=== PATIENT | male | born 1935 | race Caucasian/White ===

== ENCOUNTER 2017-09-21 15:21 | Inpatient (IN) | payer MEDICARE, MEDICAID ==
[~2017-09-21] VITALS: Ht 185.4 cm; Wt 92.8 kg
--- NOTE | 2017-09-21 15:53 | NUR ---
NEW ADMIT TRANSFERED FROM ER BY W/C VIA EMS. OREINTED TO ROOM. CALL LIGHT IN REACH. WILL CONT. PLAN OF CARE.
[2017-09-21 15:59] VITALS: BP 161/92; BMI 25.1
[2017-09-21 16:29] LABS: BASOPHILS 0.3 % (0-2); EOSINOPHILS 3.6 % (0-7); HEMATOCRIT 42.8 % (42.0-54.0); HEMOGLOBIN 14.2 g/dL (13.5-17.5); IMMATURE GRANULOCYTES 0.3 % (0-5); MCH 30.3 pg (26.0-34.0); MCHC 33.2 g/dL (31.0-37.0); MCV 91.3 fL (80.0-100.0); MEAN PLATELET VOLUME 10.6 fL (7.4-10.4); MONOCYTES 8.4 % (2-11); NEUTROPHILS 70.4 % (40-80); PLATELET COUNT 247 10x3/uL (130-400); RBC 4.69 10x6/uL (4.20-6.10); RDW 12.8 % (11.5-14.5); WBC 11.9 10x3/uL (4.8-10.8)
[2017-09-21 16:49] LABS: ALBUMIN 3.8 g/dL (3.4-5.0); ALKALINE PHOSPHATASE 115 U/L (46-116); ALT (SGPT) 19 U/L (10-68); BILIRUBIN - TOTAL 0.45 mg/dL (0.2-1.3); CALC OSMOLALITY 281 mosm/kg (275-300); CALCIUM 8.5 mg/dL (8.5-10.1); CHLORIDE - SERUM 100 mmol/L (98-107); CREATININE - SERUM 1.6 mg/dL (0.6-1.3); GLUCOSE 301 mg/dL (74-106); POTASSIUM - SERUM 4.5 mmol/L (3.5-5.1); PROTEIN - SERUM 7.2 g/dL (6.4-8.2); SODIUM 134 mmol/L (136-145); UREA NITROGEN 21 mg/dL (7-18); eGFR NON AFRICAN AMERICAN 44 mL/min (90-120)
[2017-09-21 17:01] LABS: CKMB 3.8 U/L (0.0-3.6); CREATINE KINASE 143 UL (21-232)
[2017-09-21 17:06] LABS: TROPONIN-I < 0.017 ng/mL (0.000-0.060)
--- NOTE | 2017-09-21 19:57 | NUR ---
PT SITTING ON SIDE OF BED, AWAKE, ALERT, ORIENTED AT THIS TIME TO PLACE AND SITUATION. PTS SISTER AND SISTER IN LAW HAVE NOW LEFT, HOWEVER, THEY DID LEAVE THEIR NUMBERS TO BE REACHED ANYTIME. THE SISTERS STATE THAT PT HAS DEMENTIA AND LIVES IN ASSISTED LIVING, BUT NO REPORTS OF SUNDOWNERS. PT DENIES ANY NEEDS AT THIS TIME. WILL CONTINUE TO MONITOR CLOSELY. JAGJIT ROY - SISTER IN LAW [phone] MARY JO PINTO - SISTER [phone] BOTH STATE THEY HAVE POA, AND ARE TO BE NOTIFIED WITH ANY CHANGES IN PTS STATUS.
[2017-09-21 21:12] VITALS: BP 144/89
[2017-09-22 01:05] VITALS: BP 156/92
[2017-09-22 01:09] LABS: CKMB 2.9 U/L (0.0-3.6); CREATINE KINASE 94 UL (21-232); TROPONIN-I < 0.017 ng/mL (0.000-0.060)
[2017-09-22 05:22] VITALS: BP 140/84
[2017-09-22 06:23] LABS: HEMATOCRIT 44.4 % (42.0-54.0); LYMPHOCYTES 20.4 % (15-50); MCH 29.9 pg (26.0-34.0); MCHC 33.8 g/dL (31.0-37.0); MEAN PLATELET VOLUME 10.4 fL (7.4-10.4); NEUTROPHILS 66.6 % (40-80); PLATELET COUNT 266 10x3/uL (130-400); RBC 5.02 10x6/uL (4.20-6.10); RDW 13.1 % (11.5-14.5); WBC 9.6 10x3/uL (4.8-10.8)
--- NOTE | 2017-09-22 06:25 | NUR ---
PT RESTING COMFORTABLY, NO NEEDS. CONTINUE TO MONITOR CLOSELY.
[2017-09-22 06:26] LABS: MCV 88.4 fL (80.0-100.0)
[2017-09-22 06:54] LABS: CALC OSMOLALITY 288 mosm/kg (275-300); CALCIUM 9.4 mg/dL (8.5-10.1); CARBON DIOXIDE 28.4 mmol/L (21.0-32.0); CHLORIDE - SERUM 104 mmol/L (98-107); CKMB 2.6 U/L (0.0-3.6); CREATINE KINASE 84 UL (21-232); CREATININE - SERUM 1.6 mg/dL (0.6-1.3); POTASSIUM - SERUM 4.2 mmol/L (3.5-5.1); SODIUM 140 mmol/L (136-145); TROPONIN-I < 0.017 ng/mL (0.000-0.060); UREA NITROGEN 18 mg/dL (7-18); eGFR NON AFRICAN AMERICAN 44 mL/min (90-120)
[2017-09-22 06:55] LABS: GLUCOSE 239 mg/dL (74-106)
[2017-09-22 08:00] VITALS: BP 154/95
[2017-09-22 11:30] VITALS: Ht 185.4 cm; Wt 92.8 kg
[2017-09-22 12:00] VITALS: BP 151/83
[2017-09-22] MEDS ORDERED: NORVASC10 MG PO (12:04)
[2017-09-22] MEDS ORDERED: TOPROL XL100 MG PO (12:04)
[2017-09-22] MEDS ORDERED: GLUCOTROL 5 MG T5 MG PO ×2 (12:06→12:07)
[2017-09-22] MEDS ORDERED: LISINOPRIL10 MG PO (12:07)
[2017-09-22] MEDS ORDERED: PRAVASTATIN SOD10 MG PO (12:08)
[2017-09-22] MEDS ORDERED: BENZONATATE200 MG PO (12:18)
[2017-09-22] MEDS ORDERED: ACETAMINOPHEN500 M1 PO (12:20)
[2017-09-22] MEDS ORDERED: ASPIRIN81 MG PO (13:08)
--- NOTE | 2017-09-22 13:20 | HP ---
PATIENT: DAVE ROY MEDICAL RECORD: [id number] ACCOUNT: [id number] LOCATION:[address] : 36 ADMISSION DATE: 09/21/17 HISTORY AND PHYSICAL EXAMINATION HISTORY: The patient is a pleasant 82-year-old white male, patient of mine, who resides in assisted living, developed chest pain. The assisted living personnel tried to call local ambulance but no one is in town, so they sent him up here. Pain started 30-40 minutes prior to his presentation here. His EKG shows sinus mechanism at this time without any acute change. Chest x-ray reveals no infiltrates. He is given nitroglycerin times 2 with almost complete relief after the second. He was also given an aspirin here in the office. He has no known history of heart problems. He does drink alcohol on a daily basis. He is going to be a direct admit to the hospital. PAST MEDICAL HISTORY: Significant for known hypertension, COPD, prostate cancer, type 2 diabetes, and alcohol abuse. PAST SURGICAL HISTORY: Previous surgeries include right ankle surgery in 1978 and implants for prostate cancer in 2001. ALLERGIES: None known. HOME MEDICATIONS: Amlodipine 10 mg one p.o. daily, metoprolol 100 mg a day, pravastatin 10 mg a day, glipizide 5 mg two in the morning and one at supper, lisinopril 10 mg b.i.d., and Tylenol p.r.n. FAMILY HISTORY: Significant for type 2 diabetes. SOCIAL HISTORY: He resides at [facility]. He has been a smoker in the past, but quit almost 20 years ago. He drinks about 12 packs per day. REVIEW OF SYSTEMS: He complains of chest pain as above and some shortness of breath. No nausea. Denies rash. He denies any abdominal pain or change in bowels. PHYSICAL EXAMINATION: VITAL SIGNS: Height 6 feet 1-1/2 inches and weight 215. Temp 98.6, initial BP is 150/68, pulse is 81, respirations 12, and sats 97%. GENERAL: He appears moderately to mildly ill. He is in no obvious distress at this time. HEENT: Sclerae are nonicteric. 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 Mucous membranes appear a little moist. HEART: Regular at this time. LUNGS: Few coarse sounds and slight wheeze. ABDOMEN: Soft. EXTREMITIES: Lower extremities reveal no edema. NEUROLOGIC: Without any gross focal deficits. IMPRESSION: 1. Chest pain, relieved with nitroglycerin. 2. Hypertension. 3. Type 2 diabetes. 4. Alcohol abuse. 5. Hyperlipidemia. HISTORY AND PHYSICAL [id number] DAVE ROY PLAN: Direct admit. Cycle enzymes. He is given an aspirin here in the office plus nitro times 2 with almost complete relief of pain. Consult cardiology. See orders for plan. TRANSINT:[id number] Voice Confirmation ID: [id number] DOCUMENT ID: [id number] ZENA STODDARD DO at 1320 CC: [id number] DICTATION DATE: 09/21/17 1421 COMMUNICATIONS SUPERVISOR: 09/21/17 1741 ADM IN [facility] [address] [place] [address]
--- NOTE | 2017-09-22 17:22 | NUR ---
IV AND TELEMETRY DCD. DC PLANS GIVEN. UNDERSTANDING VOICED. ESCORTED TO CAR BY W/C.
--- NOTE | 2017-09-22 17:27 | NUR ---
Patient Name: DAVE ROY Admission Status: ER Accout number: [id number] Admission Date: 09-21-2017 : 1935 Admission Diagnosis:CHEST PAIN, UNSPECIFIED Attending: MORAIMA, Current LOS: 1 Anticipated DC Date: 09-22-2017 Planned Disposition: Assisted Living Primary Insurance: MEDICARE A & B PLANNED EXTERNAL PROVIDER: [facility] [place] Discharge Planning Comments: * Is the patient Alert and Oriented? Yes 0 * How many steps to enter\exit or inside your home? NONE 0 * PCP DR. STODDARD 0 * [facility] [place] 0 * Preadmission Environment Home Alone 0 * ADLs Partial Dependent 0 * Partial ADLs (Assistance needed) Medication Management 0 * Equipment Cane 0 * Other Equipment NO MEDICAL EQUIPMENT PROVIDER PREFERENCE 0 * List name and contact numbers for known caregivers / representatives who currently or will assist patient after discharge: JAGJIT ROY, IN LAW, MARY JO PINTO, SISTER, 0 * Community resources currently utilized None 0 * Please name any agencies selected above. NONE 0 * Additional services required to return to the preadmission environment? No 0 * Can the patient safely return to the preadmission environment? Yes 0 * Has this patient been hospitalized within the prior 30 days at any hospital? No 0 CM MET WITH PT, SISTER AND SISTER IN LAW IN ROOM TO DISCUSS DISCHARGE PLANNING AND NEEDS. PT REPORTS LIVING AT [facility] [place]. PT REQUIRES ASSISTANCE WITH MEDICATION MANAGEMENT ONLY. PT HAS A CANE WITH NO MEDICAL EQUIPMENT PROVIDER PREFERENCE. PT HAS NO OTHER OUTSIDE SERVICES ASSISTING IN THE HOME. CM DISCUSSED AVAILABILITY OF HOME HEALTH, REHAB SERVICES AND MEDICAL EQUIPMENT. PT DENIES DISCHARGE NEEDS, REPORTS HIS SISTER IS HERE TO PICK HIM UP FOR DISCHARGE HOME. PT'S BEDSIDE NURSE REPORTS SHE CALLED REPORT TO [facility] AND WAS TOLD NOTHING MORE WAS REQUIRED. LIVE IN HOUSEKEEPER WAS ALREADY AWARE. Turbine Technician: Nic Fischer
--- NOTE | 2017-09-25 13:58 | CN ---
PATIENT NAME:DAWIT ROY MEDICAL RECORD: [id number] : 37 LOCATION:. D.2119 ADMIT DATE: 09/21/17 ACCOUNT: [id number] CONSULTING PHYSICIAN: NADIR GARBER MD REFERRING PHYSICIAN: LENA VALERA MD DATE OF CONSULTATION: 09/22/2017 HISTORY OF PRESENT ILLNESS: Dawit Roy is an 82-year-old gentleman, resident of assisted living. No known history of heart disease. He presented with a direct admit for chest pain. Currently, cardiac enzymes are negative. He is not a good historian, apparently doing his usual activities. He does not have chest pain on a regular basis. We are asked to see him concerning his cardiovascular status. PAST MEDICAL HISTORY: Includes; 1. History of hypertension. 2. Hyperlipidemia. 3. Questionable history of dementia. ALLERGIES: None known. MEDICATIONS: Included amlodipine 10 mg p.o. q. day, lisinopril 10 mg p.o. q. day, metoprolol 100 mg p.o. q. day, pravastatin 10 mg p.o. q. day, Ativan 1, and insulin per scale. SOCIAL HISTORY: He currently resides in assisted living, apparent history of alcohol abuse in the past. REVIEW OF SYSTEMS: The patient reports easy bruising but reports no swollen glands. The patient reports no fever, no night sweats, no significant weight gain, no significant weight loss. No significant exercise tolerance. The patient reports no dry eyes, no irritation, no vision change. Patient reports no difficulty hearing and no ear pain. Patient reports no frequent nose bleeds or nose and sinus problems. Patient reports on arm pain on exertion. No shortness of breath while lying down. No history of heart murmur. Patient reports no cough, no wheezing or coughing up blood. Patient reports no abdominal pain, no vomiting. Normal appetite. No diarrhea and not vomiting blood. No nausea and no constipation. Patient reports no incontinence. No difficulty urinating. No hematuria. No increased frequency. Patient reports no muscle aches. No weakness, no arthralgias, no back pain. No swelling of the extremities. Patient reports no abnormal mole, no jaundice, no rashes. Reports no loss of consciousness. No weakness and no numbness. No seizures, dizziness, or headaches. The patient reports no depression, no sleep disturbance, feeling safe in a relationship and no alcohol abuse. Patient reports on fatigue. Reports no runny nose or sinus pressure. No itching, no hives, and no frequent sneezing. PHYSICAL EXAMINATION: GENERAL: Pleasant gentleman, in no acute distress. VITAL SIGNS: Blood pressure 140/84, pulse 77 and regular. HEENT: Normocephalic, atraumatic. NECK: No JVD or bruit. HEART: Regular, II/ systolic ejection murmur. LUNGS: Good air excursion. ABDOMEN: Soft, nontender. CONSULT REPORT [id number] DAWIT ROY EXTREMITIES: Pulses 2+ with no edema. DIAGNOSTIC DATA: ECG without acute change. Cardiac enzymes are negative. IMPRESSION: Discussed with the patient and family, they prefer to defer any invasive workup at this time. We will check echocardiographic study, if enzymes remain negative, no contraindication at discharge from my standpoint. TRANSINT:[id number] Voice Confirmation ID: [id number] DOCUMENT ID: [id number] NADIR GARBER MD at 1358 CC: [id number] DICTATION DATE: 09/22/17 0844 MATERIALS ASSISTANT: 09/22/17 1207 DIS IN 09/22/17 [facility] [address] [place] [address]
[2017-11-14] MEDS ORDERED: METOPROLOL TART50 MG PO (06:24)
== END 2017-09-22 17:23 | disposition home or self-care (01) | DRG 313 ==
LOC: D.ER 15:21 → D.M2 15:30
PROVIDERS: ADMIT Family Medicine
DX: R07.9 Chest pain, unspecified (principal); I10 Essential (primary) hypertension; J44.9 Chronic obstructive pulmonary disease, unspecified; E78.5 Hyperlipidemia, unspecified; F10.10 Alcohol abuse, uncomplicated; Z85.46 Personal history of malignant neoplasm of prostate; E11.65 Type 2 diabetes mellitus with hyperglycemia

== ENCOUNTER → 2017-11-14 06:11 | Outpatient (CLI) | payer MEDICARE ==
[~2017-11-14] VITALS: Ht 188 cm; Wt 84.1 kg
--- NOTE | ~2017-11-14 | HEMODYNAMI ---
PATIENT:DAVE ROY MEDICAL RECORD: [id number] : 37 LOCATION:D.CAT ADMISSION DATE: 11/14/17 Generatedon:11/14/20178:16 Patient name: DAVE ROY Patient #: [id number] SSN: : 1935 Date of study: 11/14/2017 Page: Of Hemodynamic Procedure Report Patient Data Patient Demographics Procedure consent was obtained First Name: DAVE Gender: Male Last Name: KIRILL : 1935 Patient #: [id number] Age: 82 year(s) Race: Unknown Additional ID: [id number] Contact details [address]: [address] [place] [address] ROAD State: [place] City: [place] Zip code: [address] Admission Admission Data Admission Date: 11/14/2017 Admission Time: 6:11 Procedure Procedure Types Cath Procedure Diagnostic Procedure LHC LH w/Coronaries Miscellaneous Procedures Moderate Sedation up to 15 minutes Procedure Description Procedure Date Procedure Date: 11/14/2017 Procedure Start Time: 7:59 Procedure End Time: 8:14 Procedure Staff Name Function Chaz Lynch MD Performing Physician Courtney Pan RN Nurse Emma Jones RT Monitor Brian Meyer RT Scrub Procedure Data Cath Procedure Fluoroscopy Diagnostic fluoroscopy Total fluoroscopy Time: 2.2 time: 2.2 min min Diagnostic fluoroscopy Total fluoroscopy dose: 667 dose: 667 mGy mGy Contrast Material Contrast Material Type Amount (ml) Isovue 300 49 Entry Location Entry Primary Successful Side Size Upsize Upsize Entry Closure Succes sful Closure Location (Fr) 1 (Fr) 2 (Fr) Remarks Device Remarks Femoral Right 5 Fr Exoseal artery Estimated blood loss: 10 ml Diagnostic catheters Device Type Used For End Catheter Placement MULTIPACK JL 4.0 5Fr Procedure catheter MULTIPACK 3DRC 5Fr Procedure catheter MULTIPACK Pigtail 5 Fr Procedure catheter Procedure Complications No complications Procedure Medications Medication Administration Route Dosage Oxygen NC 2 l/min Lidocaine 2% added to field 20 Heparin Flush Bag added to field 2 bags (1000units/500ml NS) 0.9% NaCl I.V. 100 ml/hr Versed I.V. 1 mg Fentanyl I.V. 25 mcg Hemodynamics Rest Heart Rate: 72 (bpm) Pressure Samples Time Site Value (mmHg) Purpose Heart Use Rate(bpm) 8:03 AO 135/71(99) Snapshot 72 8:09 LV 122/0,13 EDP 69 8:09 AO 136/51(85) Pullback 70 8:09 LV 110/5,11 Pullback 70 Gradients Valve Time Site 1 Site 2 Mean SEP/DFP Peak To Heart Use (mmHg) (sec/min) Peak Rate (mmHg) (bpm) Aortic 8:09 LV AO 0 7 0 70 110/5,11 136/51(85) Calculations Valve P-P Mean Valve Index Valve Source Name Gradient Area Flow (cm2) Aortic 0 0 0 0 Snapshots Pre Cath Intra NCS Post Cath Vital Signs Time Heart Resp SPO2 etCO2 NIBP (mmHg) Rhythm Pain Sedation Rate (ipm) (%) (mmHg) Status Level (bpm) 7:50:19 90 13 97 40.6 163/83(118) NSR 0 (11) 10(A) , No pain 7:55:03 69 13 100 39.8 154/86(121) NSR 0 (11) 10(A) , No pain 7:59:50 73 13 99 42.1 144/83(115) NSR 0 (11) 10(A) , No pain 8:04:31 71 15 99 43.6 139/80(111) NSR 0 (11) 9(A) , No pain 8:09:16 69 15 99 42.9 119/65(93) NSR 0 (11) 10(A) , No pain 8:13:54 71 11 98 45.2 127/74(106) NSR 0 (11) 10(A) , No pain Medications Time Medication Route Dose Verified Delivered Reason Notes Effec tiveness by by 7:41:22 Oxygen NC 2 Chaz Buffie used for l/min Cris Pan RN procedure 7:41:29 Lidocaine 2% added 20ml Chaz Chaz for local to vial Cris Lynch MD anesthetic field CANCHOLA 7:41:35 Heparin Flush added 2 Chaz Chaz used for Bag to bags Cris Lynch MD procedure (1000units/500ml field CANCHOLA NS) 7:41:45 0.9% NaCl I.V. 100 Chaz Courtney Per ml/hr Cris Pan RN physician MD 7:59:49 Versed I.V. 1 mg Chaz Valdez for Cris Pan RN sedation 7:59:56 Fentanyl I.V. 25 Chaz Herreraie [place] [facility] [place] Pan RN sedation Procedure Log Time Note 7:30:32 Brian Meyer RT(R) sent for patient. Start room use. 7:33:32 Time tracking: Regular hours 7:33:36 Plan of Care:Hemodynamics will remain stable., Cardiac rhythm will remain stable., Comfort level will be maintained., Respiratory function will remain adequate., Patient/ family verbilizes understanding of procedure., Procedure tolerated without complication., Recovers from procedure without complications.. 7:41:22 Oxygen 2 l/min NC was administered by Courtney Pan RN; used for procedure; 7:41:29 Lidocaine 2% 20ml vial added to field was administered by Chaz Lynch MD; for local anesthetic; 7:41:35 Heparin Flush Bag (1000units/500ml NS) 2 bags added to field was administered by Chaz Lynch MD; used for procedure; 7:41:45 0.9% NaCl 100 ml/hr I.V. was administered by Courtney Pan RN; Per physician; 7:42:49 Patient received from Pre/Post Procedure Room to CCL 1 Alert and oriented. Tansferred to table in Supine position. 7:42:50 Warm blankets applied, and sudhir hugger turned on for patient comfort. 7:42:51 Correct patient and procedure confirmed by team. 7:42:52 Signed procedure consent form obtained from patient. 7:42:53 ECG and BP/O2 sat monitors applied to patient. 7:49:21 Vital chart was started 7:49:34 Rhythm: sinus rhythm 7:49:35 Full Disclosure recording started 7:49:41 H&P Date Dictated: 11/08/2017 Within 30 days and on chart., H&P Addendum completed by physician on day of procedure. (MUST COMPLETE FOR ALL OUTPATIENTS). 7:49:41 Pre-procedure instructions explained to patient. 7:49:42 Pre-op teaching completed and patient verbalized understanding. 7:49:44 Family in patients room. 7:49:46 Patient NPO since Midnight. 7:49:47 Is the patient allergic to Iodine/contrast media? No. 7:49:48 Is patient on blood thinner?Yes 7:49:51 ACC The patient was administered the following blood thiners within the last 24 hours: ACCPlavix 7:49:52 Patient diabetic? Yes. 7:49:54 If diabetic: On Metformin? No 7:49:56 Previous problem with sedation/anesthesia? No ? 7:49:58 Snore? Yes 7:49:59 Sleep apnea? No 7:50:00 Deviated septum? No 7:50:01 Opens mouth fully? Yes 7:50:02 Sticks out tongue? Yes 7:50:04 Airway obstruction? No ? 7:50:07 Dentures? Yes OUT 7:50:12 Pre procedure: right dorsailis pedis pulse 1+ Palpable, but thready & weak; easily obliterated 7:50:13 Modified Levi's test Ulnar > 7 seconds. 7:50:23 FAILED ALLENS 7:51:34 Patient pain scale 0/10 ?. 7:54:37 IV patent on arrival in left hand with 0.9% NaCl at [facility]. 7:54:40 Lab results completed and on chart. 7:54:52 Right groin area was prepped with chlora-prep and draped in sterile fashion 7:54:53 Alarms reviewed by ROrlando N. 7:54:54 Sharps counted by scrub and verified by R.N. 7:54:56 --------ALL STOP TIME OUT------ 7:54:56 Final Timeout: patient, procedure, and site verified with staff and physician. All members of the team are in agreement. 7:54:58 Right groin site verified by team. 7:55:01 Physical assessment completed. ASA score P 2 - A patient with mild systemic disease as per Chaz Lynch MD. 7:55:05 Sedation plan: IV Moderate Sedation Medication:Versed, Fentanyl 7:56:23 Use device set Femoral Dx 7:56:26 Tegaderm 4 x 4 (1626W) opened to sterile field. 7:56:27 ACIST Hand Control (70451) opened to sterile field. 7:56:27 ACIST Manifold (78433) opened to sterile field. 7:56:29 ACIST Syringe (72712) opened to sterile field. 7:56:29 Bag Decanter (2002S) opened to sterile field. 7:56:29 Medline Cath Pack ([id number]) opened to sterile field. 7:56:30 SHEATH 5FR [place] (XUG573) opened to sterile field. 7:56:31 DIAGNOSTIC WIRE .035 260cm J wire (641396) opened to sterile field. 7:56:33 DIAGNOSTIC Multipack 5Fr catheter set (PB1290) opened to sterile field. 7:56:34 MICROPUNCTURE 4FR Cook (S91119) opened to sterile field. 7:59:49 Procedure started. 7:59:49 Versed 1 mg I.V. was administered by Courtney Pan RN; for sedation; 7:59:54 Local anesthetic to right femoral artery with Lidocaine 2% by Chaz Lynch MD.INITIAL ACCESS ONLY 7:59:56 Fentanyl 25 mcg I.V. was administered by Courtney Pan RN; for sedation; 8:01:06 Access obtained with 4Fr micropunture. 8:01:10 Baseline sample Acquired. 8:01:22 Zero performed for pressure channel P1 8:01:39 A 5 Fr sheath was inserted into the Right Femoral artery 8:01:56 A MULTIPACK JL 4.0 5Fr catheter was advanced over the wire and used for Procedure. 8:03:26 LCA angiography performed. 8:05:31 Catheter exchanged over wire. 8:05:46 A MULTIPACK 3DRC 5Fr catheter was advanced over the wire and used for Procedure. 8:07:07 RCA angiography performed. 8:07:30 Catheter exchanged over wire. 8:09:05 A MULTIPACK Pigtail 5 Fr catheter was advanced over the wire and used for Procedure. 8:09:53 LV angiography performed. 8:09:56 LV gram done using MARTINEZ 8:10:02 EF : 55 % 8:10:08 LV hemodynamics recorded. 8:10:12 Injector settings: Ml/sec: 12, Volume: 8, 8:10:17 Catheter removed. 8:10:20 EXOSEAL 5Fr (EX500) opened to sterile field. 8:12:19 Sheath removed intact; hemostasis achieved with Exoseal to the Right Femoral artery. 8:12:22 Procedure ended.(Physican Out) 8:12:44 Fluoroscopy time 02.20 minutes. 8:12:49 Fluoroscopy dose: 667 mGy 8:12:49 Flurop Dose total: 667 8:12:58 Contrast amount:Isovue 300 49ml. 8:12:59 Sharps counted by scrub and verified by R.N. 8:13:01 Insertion/operative site no bleeding no hematoma. 8:13:04 Post-op/insertion site Right Femoral artery dressed using a 4 x 4 and Tegaderm. 8:13:05 Post Procedure Pulses reassessed and unchanged 8:13:09 Post-procedure physical assessment completed. ASA score P 2 - A patient with mild systemic disease as per Chaz Lynch MD. 8:13:12 Post procedure rhythm: unchanged. 8:13:15 Estimated blood loss: 10 ml 8:13:16 Post procedure instruction explained to patient.Patient verbalizes understanding. 8:13:17 Patient needs reinforcement of post procedure teaching. 8:13:24 Procedure and supply charges have been captured, reviewed, submitted and are correct. 8:13:26 Procedure Complication : No complications 8:14:37 Vital chart was stopped 8:14:38 See physician's report for complete and final results. 8:14:39 Report given to Pre/Post Procedure Room. 8:14:42 Patient transfered to Pre/Post Procedure Room with Stretcher. 8:14:44 Procedure ended. 8:14:44 Full Disclosure recording stopped 8:14:47 End room use (Document Last) Device Usage Item Name Manufacture Quantity Catalog Hospital Part Current Minimal Lot# / Number Charge Number Stock Stock Serial# Code Tegaderm 4 x 3M 1 1626W [id number] [id number] [id number] 5 4 (1626W) ACIST Hand Acist 1 70488 525808 167836 138854 5 Control Medical (28633) Systems Inc ACIST Acist 1 84411 303985 188999 059242 5 Manifold Medical (07748) Systems Inc ACIST Syringe Acist 1 57983 706701 418220 331139 20 (17519) Medical Systems Inc Bag Decanter Microtek 1 2001S 027569 51585 320181 5 (2001S) Medical Inc. Medline Cath Cardinal 1 [id number] 416077 55065 683916 5 Pack [facility] ([id number]) SHEATH 5FR Terumo 1 YPH075 156552 626038 781040 40 [place] (JET213) DIAGNOSTIC [facility] [place] 1 899458 947233 306280 801875 30 WIRE .035 260cm J wire (733318) DIAGNOSTIC Cardinal 1 WQ5938 562750 03239 469856 30 Multipack 5Fr Health catheter set (GQ1056) MICROPUNCTURE Cook Medical 1 W79812 048046 676132 121745 5 4FR Cook ([id number]) MULTIPACK JL Cardinal 1 230921 5 4.0 5Fr Health catheter MULTIPACK Cardinal 1 125871 5 3DRC 5Fr Health catheter MULTIPACK Cardinal 1 122261 5 Pigtail 5 Fr Health catheter EXOSEAL 5Fr Cardinal 1 EX500 302452 361075 846030 10 (EX500) Health Signature Audit [place] Stage Time Signature Unsigned Intra-Procedure 11/14/2017 Brian Meyer 8:16:29 AM RT(R) Signatures Monitor : Emma Jones Signature : RT Date : Time : [id number] [place] [address]
[~2017-11-14 06:11] MED LIST: ACETAMINOPHEN500 M1 PO; ASPIRIN81 MG PO; BENZONATATE200 MG PO; GLUCOTROL 5 MG T5 MG PO; LISINOPRIL10 MG PO; METOPROLOL TART50 MG PO; NORVASC10 MG PO; PRAVASTATIN SOD10 MG PO; TOPROL XL100 MG PO
[2017-11-14 06:34] VITALS: BP 172/92; Ht 188 cm; Wt 84.1 kg
[2017-11-14 07:01] LABS: BASOPHILS 0.3 % (0-2); EOSINOPHILS 4.4 % (0-7); HEMATOCRIT 43.5 % (42.0-54.0); HEMOGLOBIN 14.3 g/dL (13.5-17.5); IMMATURE GRANULOCYTES 0.2 % (0-5); LYMPHOCYTES 16.9 % (15-50); MCH 29.6 pg (26.0-34.0); MCHC 32.9 g/dL (31.0-37.0); MCV 90.1 fL (80.0-100.0); MEAN PLATELET VOLUME 11.1 fL (7.4-10.4); MONOCYTES 7.8 % (2-11); NEUTROPHILS 70.4 % (40-80); PLATELET COUNT 284 10x3/uL (130-400); RBC 4.83 10x6/uL (4.20-6.10); WBC 9.4 10x3/uL (4.8-10.8)
[2017-11-14 07:09] LABS: ANION GAP 13.2 mmol/L (8-16); CALCIUM 9.1 mg/dL (8.5-10.1); CREATININE - SERUM 1.7 mg/dL (0.6-1.3); POTASSIUM - SERUM 4.2 mmol/L (3.5-5.1)
== END | disposition home or self-care (01) ==
LOC: D.CATH 06:11
PROVIDERS: Internal Medicine Cardiovascular Disease
DX: R07.9 Chest pain, unspecified (principal); R94.39 Abnormal result of other cardiovascular function study; R06.00 Dyspnea, unspecified; Z01.812 Encounter for preprocedural laboratory examination; E11.9 Type 2 diabetes mellitus without complications; E78.5 Hyperlipidemia, unspecified

== ENCOUNTER → 2018-01-24 18:49 | Outpatient (CLI) | payer MEDICARE ==
[2017-11-14 06:34] VITALS: BMI 23.8
[2018-01-24 19:34] LABS: CHOL - HDL RATIO 4.2 ratio (2.3-4.9); LDL-HDL RATIO 2.6 ratio (1.5-3.5)
== END | disposition home or self-care (01) ==
LOC: D.LABREF 18:49
PROVIDERS: Internal Medicine Cardiovascular Disease
DX: E78.5 Hyperlipidemia, unspecified (principal)

== ENCOUNTER → 2018-03-20 17:30 | Outpatient (CLI) | payer MEDICARE ==
[2017-11-14 06:34] VITALS: BMI 23.8
[2018-03-20 17:55] LABS: CHOL - HDL RATIO 2.7 ratio (2.3-4.9); LDL-HDL RATIO 1.1 ratio (1.5-3.5)
== END | disposition home or self-care (01) ==
LOC: D.LABREF 17:30
PROVIDERS: Internal Medicine Cardiovascular Disease
DX: E78.5 Hyperlipidemia, unspecified (principal)

== ENCOUNTER 2019-02-28 17:37 | Emergency (ER) | payer MEDICARE ==
[~2019-02-28] VITALS: Ht 188 cm; Wt 93.6 kg
[2019-02-28 17:45] VITALS: Ht 188 cm; Wt 93.6 kg
[2019-02-28 18:32] LABS: BASOPHILS 0.4 % (0-2); EOSINOPHILS 6.7 % (0-7); HEMATOCRIT 41.1 % (42.0-54.0); HEMOGLOBIN 13.8 g/dL (13.5-17.5); IMMATURE GRANULOCYTES 0.3 % (0-5); LYMPHOCYTES 30.5 % (15-50); MCH 29.3 pg (26.0-34.0); MCHC 33.6 g/dL (31.0-37.0); MCV 87.3 fL (80.0-100.0); MONOCYTES 8.3 % (2-11); NEUTROPHILS 53.8 % (40-80); PLATELET COUNT 292 10x3/uL (130-400); RBC 4.71 10x6/uL (4.20-6.10); RDW 13.6 % (11.5-14.5)
[2019-02-28 18:59] LABS: ALBUMIN 3.3 g/dL (3.4-5.0); ALKALINE PHOSPHATASE 109 U/L (46-116); ALT (SGPT) 17 U/L (10-68); BILIRUBIN - TOTAL 0.61 mg/dL (0.2-1.3); CALC OSMOLALITY 271 mosm/kg (275-300); CALCIUM 8.3 mg/dL (8.5-10.1); CARBON DIOXIDE 24.8 mmol/L (21.0-32.0); CHLORIDE - SERUM 98 mmol/L (98-107); GLUCOSE 160 mg/dL (74-106); PROTEIN - SERUM 6.8 g/dL (6.4-8.2); SODIUM 131 mmol/L (136-145); UREA NITROGEN 28 mg/dL (7-18); eGFR NON AFRICAN AMERICAN 34 mL/min (90-120)
[2019-02-28 19:01] LABS: AMYLASE - SERUM 56 U/L (25-115); LIPASE 396 U/L (73-393)
[2019-02-28 19:06] LABS: CKMB 2.6 U/L (0.0-3.6); CREATINE KINASE 50 UL (21-232); THYROID STIMULATING HORMONE 1.39 uIU/mL (0.36-3.74); TROPONIN-I < 0.017 ng/mL (0.000-0.060)
[2019-02-28 20:30] LABS: INR 0.96 (0.85-1.17); PROTIME 12.3 SECONDS (11.6-15.0)
[2019-02-28 20:31] LABS: APTT 31.5 SECONDS (22.8-39.4)
[2019-02-28 20:48] LABS: APPEARANCE CLEAR (CLEAR); BILIRUBIN NEGATIVE (NEGATIVE); COLOR YELLOW (YELLOW); GLUCOSE NEGATIVE (NEGATIVE); KETONE NEGATIVE (NEGATIVE); NITRITE NEGATIVE (NEGATIVE); PROTEIN TRACE mg/dL (NEGATIVE); UROBILINOGEN NORMAL (NORMAL)
[2019-02-28] MEDS ORDERED: TOPROL XL50 MG PO (21:27)
[2019-02-28 22:05] VITALS: BP 151/77
== END 2019-02-28 22:05 | disposition home or self-care (01) ==
LOC: D.ER 17:37
PROVIDERS: Family Medicine
DX: I95.2 Hypotension due to drugs (principal); R53.1 Weakness

== ENCOUNTER 2020-02-15 08:34 | Inpatient (IN) | payer MEDICARE ==
[~2020-02-15] VITALS: Ht 188 cm; Wt 91.4 kg
[2020-02-15] VITALS (30 sets, daily range): BP systolic 96–143; BP diastolic 51–90; BMI 21.1
[~2020-02-15 08:34] MED LIST changes: +TOPROL XL50 MG PO
--- NOTE | 2020-02-15 08:48 | NUR ---
PT RECEIVING A BOLUS OF NS BY EMS ON ARRRIVAL. PT MOANING IN PAIN. IN AND OUT CATH DONE TO COLLECT URINE. PT JONES. WELL. 400CC OUT CLEAR YELLOW URINE. ABDOMEN IS TENDER TO TOUCH.
[2020-02-15] MEDS ORDERED: LIPITOR20 MG PO (08:50)
[2020-02-15] MEDS ORDERED: DONEPEZIL HCL5 MG PO (08:51)
[2020-02-15] MEDS ORDERED: FOLIC ACID1 MG PO (08:53)
[2020-02-15] MEDS ORDERED: LEVEMIR IN100 UNITS/ SC (08:54)
[2020-02-15] MEDS ORDERED: SINGULAIR10 MG PO (08:55)
[2020-02-15] MEDS ORDERED: CENTRUM MEN'S1 EACH PO (08:56)
[2020-02-15] MEDS ORDERED: NORVASC10 MG PO (08:56)
[2020-02-15] MEDS ORDERED: SEROQUEL25 MG PO (08:58)
[2020-02-15] MEDS ORDERED: REMERON15 MG PO (08:58)
[2020-02-15] MEDS ORDERED: FERROUS SULFAT325 MG PO (08:59)
[2020-02-15] MEDS ORDERED: GLIPIZIDE10 MG PO (09:00)
[2020-02-15 09:10] LABS: BASOPHILS 0 % (0-2); EOSINOPHILS 0 % (0-7); HEMOGLOBIN 7.9 g/dL (13.5-17.5); IMMATURE GRANULOCYTES 0.2 % (0-5); LYMPHOCYTES 5.4 % (15-50); MCH 26.8 pg (26.0-34.0); MCHC 29.3 g/dL (31.0-37.0); MCV 91.5 fL (80.0-100.0); MEAN PLATELET VOLUME 10.1 fL (7.4-10.4); MONOCYTES 6.6 % (2-11); NEUTROPHILS 87.8 % (40-80); RBC 2.95 10x6/uL (4.20-6.10); WBC 9.8 10x3/uL (4.8-10.8)
[2020-02-15 09:16] LABS: PLATELET COUNT 224 10x3/uL (130-400)
[2020-02-15 09:20] LABS: BILIRUBIN NEGATIVE (NEGATIVE); GLUCOSE NEGATIVE (NEGATIVE); KETONE NEGATIVE (NEGATIVE); NITRITE NEGATIVE (NEGATIVE); SPECIFIC GRAVITY 1.015 (1.005-1.020); UROBILINOGEN NORMAL (NORMAL)
[2020-02-15 09:26] LABS: ANION GAP 21.8 mmol/L (8-16); CARBON DIOXIDE 17.8 mmol/L (21.0-32.0); CREATININE - SERUM 2.9 mg/dL (0.6-1.3); POTASSIUM - SERUM 3.6 mmol/L (3.5-5.1)
[2020-02-15 09:32] LABS: ALBUMIN 2.9 g/dL (3.4-5.0); BILIRUBIN - TOTAL 0.5 mg/dL (0.2-1.3); MAGNESIUM - SERUM 2.1 mg/dL (1.8-2.4); PROTEIN - SERUM 6.9 g/dL (6.4-8.2)
[2020-02-15 09:40] LABS: INR 1.04 (0.85-1.17); PROTIME 13.6 SECONDS (11.6-15.0)
--- NOTE | 2020-02-15 10:45 | NUR ---
RECEIVED BEDSIDE REPORT ON PATIENT AND ASSUMED CARE OF PATIENT. NGT PLACED TO RIGHT NARE AND PLACED TO LIWS, CXR SHOWED NEED TO PULL BACK 8-[address] ARORA, PULLED BACK AND REPEAT XRAY OBTAINED. COFFEE GROUND EMESIS NOTED. ROBERTSON CATH PLACED WITH 500 CC YELLOW CLEAR URINE OBTAINED. IV NS AT 125 ML/HR AND PROTONIX 8 MG/HR INTIATED TO BILATERAL IVS 22 GA TO LEFT WRIST (PROTONIX) AND 20 GA TO RIGHT FA (NS). BOWEL SOUNDS ACTIVE X 4. BBS - CLEAR AND EQUAL, RR - 22, SPO2 98% ON RA. CM - HR 98, NSR WITH FREQUENT PVCS. HEAD TO TOE ASSESSMENT COMPLETED. PATIENT UNABLE TO STATE YEAR OR PRESIDENT, STATES IN [place], REORIENTED TO LOCATION AND YEAR. WILL CONTINUE TO MONITOR.
[2020-02-15 11:21] LABS: HELICOBACTER PYLORI IGG NEGATIVE (NEGATIVE)
--- NOTE | 2020-02-15 12:34 | NUR ---
PATIENT PULLED NGT OUT AND PULLED LEFT WRIST IV OUT.
--- NOTE | 2020-02-15 13:35 | NUR ---
IV 20 GA STARTED TO RIGHT FA, POSITIVE BLOOD RETURN AND FLUSHES EASILY. INFUSING PROTONIX. NGT REINSERTED VERIFIED BY ASCULTATION.
--- NOTE | 2020-02-15 19:00 | NUR ---
RECIVED REPORT AT BEDSIDE. PT IS AWAKE AND SITTING UP. HE IS CONFUSED TO SITUATION, DATE, TIME, AND PLACE. HE DOES HAVE A HX OF DEMENTIA AND ALZHEIMERS. HE DOES KNOW HIS PULL NAME. WHEN ASKED IF HE IS IN ANY PAIN, HE JUST BRINGS HIS HAND TO HIS NGT AND SAYS "THIS IS UNCOMFORTABLE". I TRY TO ANCHOR IT IN A BETTER POSTION BUT TRY TO EXPLAIN WHY HE HAS TO HAVE IT. HE VOICES"OK". VSS. IV'S IN RIGHT FORARM ARE CDI, NO S/S OF INFILTRATION. HE IS ON A HOURLY URINE OUTPUT. 20ML OUT OF DARK YELLOW URINE AT THIS TIME. WILL PERFORM FULL ASSESSMENT AND DOC IN FLOWSHEET. BED IS LOW,SIDE RAILSX2, CALLLIGHT WIHTIN REACH. BED ALARM IS ON
--- NOTE | 2020-02-15 20:00 | NUR ---
READ ABX X-RAY OF NGT PLACEMENT AND IT SUGGEST REPOSITIONING TUBE FURTHER INTO THE GASTRIC SPACE. ADVANCED NG-TUBE BY 2 INCHES AND CHECKED PLACEMENT WITH 30ML OF AIR AND HEARD OVER GASTRIC REGION. PT TOLERATED WELL. SECURED TUBE TO NOSE. VSS. I ALSO ASSISTED PT WITH USE OF GYLCERIN SWABS DUE TO DRY MOUTH AND FOUND THAT HIS TONGUE HAS BLACK APPEARANCE. REPOSITIONED FOR COMFORT. BED IS LOW,SIDE RAISLX2,CALL LIGHT WITHIN REACH. WILL CONTINUE TO MONITOR
--- NOTE | 2020-02-15 23:06 | NUR ---
PT IS RESTING IN BED WATCHING TV. PT IS STILL CONFUSED AND ASK FOR WATER EVEN THOUGH EVERY TIME I HAVE GONE INTO HIS ROOM AND HE ASKED I EXPLAIN TO HIM WHY HE CAN NOT. I DID PROVIDE AND ASSIST HIM WITH GLYCERIN SWAPS TO MOISTEN MOUTH. VSS. I HELPED RESPOISTION FOR COMFORT. NO OTHER NEEDS VOICED. WILL PERFORME RE-ASSESSMENT AT THIS TIME AND DOC IN FLOWSHEET. BED IS LOW,SIDE RAISLX2,CALL LIGHT WITHIN REACH. WILL CONTINUE TO MONITOR
[2020-02-16] VITALS (24 sets, daily range): BP systolic 90–118; BP diastolic 46–68
--- NOTE | 2020-02-16 00:45 | NUR ---
PT IS RESTING IN BED WATCHING TV. HE ONCE AGAIN ASKED FOR WATER. I TRIED TO RE-ORIENT TO HIM OF WHY HE CANNOT HAVE WATER AT THIS TIME. HE VOICES"THATS JUST AN EXCUSE". I WAS UNSUCCESFFUL TO HELP HIM UNDERSTAND. HE IS COOROPERATIVE THOUGH. HIS VITALS ARE STABLE. NO OTHER NEEDS VOICED. BED IS LOW,SIDE RAILSX2,CALLLIGHT WITHIN REACH. WILL CONTINUE TO MONITOR. BED ALARM IS ON
--- NOTE | 2020-02-16 01:03 | NUR ---
WENT INTO TO DO HOURLY I/O'S AND FOUND PT HAD PULLED OUT HIS NGT. I ASKED HIM WHY HE PULLED IT OUT AND HE SAID "I DIDNT WANT IT". VSS. WILL ATTEMPT TO PLACE ANOTHER ONE. BED ALARM IS ON, BED IS LOW,SIDE RAILSX2,CALL LIGHT WITHIN REACH. WILLC ONITNUE TO MONITOR
--- NOTE | 2020-02-16 03:00 | NUR ---
PT IS AWAKE WATCHING TV. VSS. WILL BE PERFOMRING RE-ASSESSMENT AND DOC IN FLOWSHEET. HOURLY I/O DONE AND DOCUMENTED. PLACED NEW NG-TUBE IN LEFT NOSTRIL AND CHECKED PLACEMENT BY PUSHING 30ML OF AIR AND LISTENING OVER GASTRIC REGION. I RECIVED T.O TO PLACE SOFT WRIST RESTRINATS DUE TO THIS BEING THE SECOND TIME THE PT PULLED HIS NGT OUT. SOFT WRIST RESTRATINTS WERE APPLIED. I EXPLAINED TO PT WHY AND HE VOICED"I JUST WANT WATER". VS REMAINED STABLE. REPOSITIONED FOR COMFORT. BED IS LOW,SIDE RAILSX2,CALL LIGHT WIHTIN REACH. WILL CONTINUE TO MONITOR
--- NOTE | 2020-02-16 05:35 | NUR ---
PT IS RESTING IN BED WATCHING TV. VSS. ASKED"IV GOT MYSELF CAUGHT UP CAN YOU HELP ME". I INFORMED PT ABOUT WHY AND WHAT THE RESTRAINTS ARE FOR. HE VOCALIZED"i JUST WANT TO GO TO MY ROOM AND GET IN MY BED". I INFORMED HIM THAT HE IS ONCE AGAIN IN THE HOSPITAL IN THE ROOM ASSIGNED AND HE IS LAYING DOWN IN BED. HE CONTINUED TO ARGUE"NO IM NOT". BED IS LOW,SIDE RAISLX2,CALLL LIGHT WITHIN REACH. BED ALARM IS ON
[2020-02-16 08:40] LABS: BASOPHILS 0.1 % (0-2); EOSINOPHILS 0 % (0-7); HEMATOCRIT 30.3 % (42.0-54.0); HEMOGLOBIN 8.9 g/dL (13.5-17.5); IMMATURE GRANULOCYTES 0.2 % (0-5); LYMPHOCYTES 10.2 % (15-50); MCH 27.1 pg (26.0-34.0); MCHC 29.4 g/dL (31.0-37.0); MCV 92.1 fL (80.0-100.0); MEAN PLATELET VOLUME 10.2 fL (7.4-10.4); MONOCYTES 6.9 % (2-11); NEUTROPHILS 82.6 % (40-80); RBC 3.29 10x6/uL (4.20-6.10); RDW 18.3 % (11.5-14.5); WBC 10.2 10x3/uL (4.8-10.8)
[2020-02-16 08:42] LABS: PLATELET COUNT 318 10x3/uL (130-400)
[2020-02-16 08:53] LABS: ANION GAP 20.7 mmol/L (8-16); CALCIUM 8.4 mg/dL (8.5-10.1); CARBON DIOXIDE 15.6 mmol/L (21.0-32.0); CREATININE - SERUM 3.4 mg/dL (0.6-1.3)
[2020-02-16 08:57] LABS: POTASSIUM - SERUM 4.3 mmol/L (3.5-5.1)
[2020-02-16 09:06] LABS: BILIRUBIN - TOTAL 0.69 mg/dL (0.2-1.3); PROTEIN - SERUM 5.4 g/dL (6.4-8.2)
[2020-02-16 09:07] LABS: ALBUMIN 1.9 g/dL (3.4-5.0)
[2020-02-16 16:03] LABS: ANION GAP 16.2 mmol/L (8-16); CALCIUM 8.1 mg/dL (8.5-10.1); CREATININE - SERUM 3.4 mg/dL (0.6-1.3); POTASSIUM - SERUM 4.1 mmol/L (3.5-5.1)
[2020-02-16 16:07] LABS: CARBON DIOXIDE 19.9 mmol/L (21.0-32.0)
--- NOTE | 2020-02-16 16:16 | NUR ---
0700 REPORT RECIEVED AND CARE ASSUMED OF PATIENT..PATIENT IS CONFUSED BUT VERY PLEASANT.. SOFT WRIST RESTRAINTS ON TO PREVENT PT FROM PULLING OUT NGT AND PIV COBAN IS WRAPPED ON PIV AND REMOVED FOR EXAM SITE WITHOUT RED OR SWELLING 0810 DR ARORA IN TO SEE PATIENT UPDATE IS GIVEN.. 0825 X RAY HERE TO DO KUB FOR NGT PLACEMENT.. LR STARTED PER ORDER FOR FLUID BOLUS .. LAB IN TO DRAW BLOOD.. 0900 DR ARORA READ X RAY NGT ADVANCED 5 CM AND PUT TO LIWS .. CLEAR DARK COFFEE GROUND APPEARING EMSIS OBTAINED.. 1000 HOURLY I AND O DONE .. PT IS CONFUSED AND WANTS TO GO HOME .. 1100 PT WANTS WRIST RESTRAINTS REMOVED SO HE CAN PULL WHATEVER IS IN HIS NOSE OUT HE SAYS..
--- NOTE | 2020-02-16 18:05 | NUR ---
1300 SISTER CALLED AND UPDATE IS GIVEN.. PT INFORMED OF SISTER CALLING.. PT VERY HAPPY THAT SHE CALLED.. 1400 WITHOUT CHANGES 1500 THERE ARE NO OTHER CHANGES IN STATUS.. 1600 I AND O DONE, 1630 FSBS DONE INSULIN COVER 1700 NEW BAG FLUID HUNG
--- NOTE | 2020-02-16 18:58 | NUR ---
1814 PT BP HAS DROPPED INTO THE 90s SYSTOLIC AND UOP REMAINS AT 10CC.. DR ARORA PAGED TO INFORM 1829 DR CALLED BACK AND UPDATE GIVEN RE BP AND UOP.. ORDERS RECIEVED LR AND BICARB TO BE GIVEN.. 1844 BOLUS AND BICARB GIVEN..
--- NOTE | 2020-02-16 19:00 | NUR ---
PT IS RESTING IN BED WATCHING TV AWAKE. HE IS DISORIENTED TO PLACE, TIME, AND SITUATION. HE KEEPS TALKING ABOUT"ARE WE STILL TAKING THE LOAD". I TRY TO RE-ORIENT THAT HE IS IN THE HOSPTIAL WITHOUT SUCCESS. HE DOES VOICE PAIN IN HIS STOMACH WHEN ASKED. RESTRAINTS ARE OBSERVED WITH GOOD CIRUCULATION. ROBERTSON CATHETOR OBSERVED BELOW BLADDER AND DRAINGIN. STILL PEROFMRING HOURLY I/O'S. WILL NOTIFY PHYSICIAN AFTER MONITORING FOR A FEW HOURS. IN REPORT I RECIVED THAT A NEW ORDER WAS JUST GIVEN TO GIVE A LR 1000ML BOLUS OVER TWO HOURS. THIS IS INFUSING NOW. HR IS SLIGHLY TACHY AT 109 SINUS TACH. BP STABLE, TEMP IS 99.7F AX, I WILL CONITUE TO MONITOR THIS. WILL PERFORM FULL-ASSESSMENT AND DOC IN FLOWSHEET. BED IS LOW,SIDE RAISLX2,CALL LIGHT WITHIN REACH.WILL CONTINUE TO MONITOR
--- NOTE | 2020-02-16 20:20 | NUR ---
CALLED BROTHER ALEX ROY/MEDICAL CONTACT IN ORDER TO GET VERBAL CONCENT FOR CVL PLACEMENT VIA . NO ANSWER WAS RECIVED. I LEFT VOICEMAIL TO CALL ME BACK(LUKASZ KISER) AT [phone]. WILL CALL BACK AGAIN SOON
--- NOTE | 2020-02-16 20:37 | NUR ---
PT BROTHER ALEX ROY CALLED BACK AND PROVIDED CORRECT CODE. HE VERABLZIED VERBAL CONCENT OF A CENTRAL VENOUS LINE PLACEMENT FOR HIS BROTHER DAVE ROY TO BOTH ME LUKASZ KISER RN AND ANDRE KITCHEN RN.
--- NOTE | 2020-02-16 21:08 | NUR ---
JUST ARRIVED TO UNIT AND SIGNED CONSENT FORM.HE WILL PLACE A CVL AT THIS TIME. 2127 PLACED LEFT IJ AND PT TOLERATED VERY WELL C NO COMPLAINTS. CVP MONITORING WAS HOOKED UP PER REQUEST FROM . V.O TO CHECK CVP EVERY HOUR AND IF BELOW 8 TO GIVE 500ML OF NS BOLUS. V.O READ BACK CORRECT. HE IS ALSO CHANGING FLUID ORDERS AT THIS TIME, I WILL ACKNOWLEDGE AND DOCUMENT ON DEC. PT VS REMAINED STABLE AND ARE STABLE. BED WAS PUT BACK IN LOW POSITION AND SIDE RILSX2,CALL LIGHT WITHIN REACH.
--- NOTE | 2020-02-16 21:44 | NUR ---
READ XRAY REPORT AND CONFIRMED CORRECT PLACEMENT OF CVL
--- NOTE | 2020-02-16 22:09 | NUR ---
PT IS RESTING IN BED WITH EYES CLOSED. VSS. BED IS LOW,SIDE RAISLX2,CALL LIGHT WITHIN REACH. WILL CONTINUE TO MONITOR
[2020-02-17] VITALS (26 sets, daily range): BP systolic 95–132; BP diastolic 52–72; Ht 188 cm; Wt 91.4 kg
--- NOTE | 2020-02-17 00:07 | NUR ---
PT CVP IS 6. SO PER ORDER I AM INFUSING 500ML NS BOLUS AT THIS TIME. PT IS RESTING WITH EYES CLOSED. ALL OTHER VITAL SIGNS ARE STABLE
--- NOTE | 2020-02-17 01:07 | NUR ---
PT IS RESTING IN BED WITH EYES CLOSED. VSS. CVP IS 8 AT THIS TIME. OUTPUT IS ONLY 13 ML OF YELLOW URINE. WILL CONITNUE TO MONITOR
--- NOTE | 2020-02-17 02:01 | NUR ---
PT IS RESTING IN BED WITH EYES CLOSED. VSS. CVP IS 6 AT THIS TIME, SO WILL GIVE 500ML NS BOLUS ORDERED. WILL DOC IN DEC. WILL CONITUE TO MONITOR
--- NOTE | 2020-02-17 02:47 | NUR ---
PT IS RESTING IN BED WITH EYES CLOSED. VSS. WILL PERFORM RE-ASSESSMENT AND DOC IN FLOWSHEET. CONITNUING TO MONITOR
[2020-02-17 03:23] LABS: BASOPHILS 0 % (0-2); EOSINOPHILS 0 % (0-7); IMMATURE GRANULOCYTES 0.3 % (0-5); LYMPHOCYTES 11.1 % (15-50); MCHC 30.7 g/dL (31.0-37.0); MEAN PLATELET VOLUME 9.9 fL (7.4-10.4); MONOCYTES 8.1 % (2-11); NEUTROPHILS 80.5 % (40-80); PLATELET COUNT 276 10x3/uL (130-400); RDW 18.3 % (11.5-14.5); WBC 7.9 10x3/uL (4.8-10.8)
[2020-02-17 03:39] LABS: ANION GAP 14.5 mmol/L (8-16); CALCIUM 7.3 mg/dL (8.5-10.1); CREATININE - SERUM 3.3 mg/dL (0.6-1.3); POTASSIUM - SERUM 3.5 mmol/L (3.5-5.1)
[2020-02-17 03:58] LABS: HEMATOCRIT 23.8 % (42.0-54.0); HEMOGLOBIN 7.3 g/dL (13.5-17.5); MCV 88.1 fL (80.0-100.0)
--- NOTE | 2020-02-17 04:07 | NUR ---
CALLED TO NOTIFY OF HEMAGOBIN OF 7.3 AND HEMATOCRIT 23.8. T.O TO GIVE 1 UNIT OF BLOOD. T.O READ BACK.
--- NOTE | 2020-02-17 04:22 | NUR ---
PT IS RESTING IN BED WITH EYES CLOSED. VSS. STARTING ONE UNIT OF PRBC AT THIS TIME. WILL CONINTUE TO MONITOR
--- NOTE | 2020-02-17 06:40 | NUR ---
PT PRBC IS DONE AT THIS TIME. VSS. PT IS RESTING WITH EYES CLOSED. BED IS LOW,SIDE RAILSX2,CALL LIGHT WITHIN REACH. WILL CONITNUE TO MONITOR
--- NOTE | 2020-02-17 07:36 | NUR ---
0700 BEDSIDE REPORT RECEIVED FROM OUTGOING EXPLOSIVE MAN COMPLETE PT ASLEEP AWAKENED TO TOUCH AND RETURNS TO SLEEP QUICKLY
--- NOTE | 2020-02-17 08:22 | NUR ---
0800 DR ARORA REVIEWING CHART NEW ORDERS NOTED
--- NOTE | 2020-02-17 08:24 | NUR ---
0824 ABDOMINAL XRAY COMPLETE
[2020-02-17 08:38] LABS: HEMATOCRIT 27.4 % (42.0-54.0); HEMOGLOBIN 8.5 g/dL (13.5-17.5)
--- NOTE | 2020-02-17 09:43 | NUR ---
[address] WILEY CALLED TO HIS OFFICE. CONSULT FOR OLIGURIA AND KIDNEY INJURY
--- NOTE | 2020-02-17 11:08 | NUR ---
80430 DR CROCKETT ROUNDING ON PATIENT NEW ORDERES NOTED FOR PRBC X 1 UNIT
--- NOTE | 2020-02-17 13:10 | NUR ---
2144 DR WOLF CALLED TO GET UPDATE STATED THAT DR RODRIGUEZ WILL TAKING CALL LATER TODAY
--- NOTE | 2020-02-17 13:13 | NUR ---
1100 DR LOPEZ ASSESSING PT AT BEDSIDE STAT CO-AGS ORDERED
--- NOTE | 2020-02-17 14:57 | NUR ---
45640 TAKEN TO IR FOR PROCEEDURE W IR STAFF. REPORT GIVEN TO AR SORIA
--- NOTE | 2020-02-17 14:59 | NUR ---
TRANSPORTED TO IR VIA BED WITH IR STAFF FOR PROCEEDURE
--- NOTE | 2020-02-17 17:09 | NUR ---
1544 PT ARRIVED TO ROOM FROM IR AND ATTACHED TO MONITORING EQUIPMENT, ALARMS SET, VSS PT EASILY AROUSED AND DENIES ALL NEEDS, AND DRESSING CDI FROM PROCEDURE HOURLY I&OS DONE, PT REPOSITIONED, DENIES ALL NEEDS, EASY TO AROUSE
--- NOTE | 2020-02-17 18:18 | MORECARE ---
CASE MANAGEMENT DISCHARGE SUMMARY PATIENT: DAVE ROY JR UNIT: [id number] ADM DATE: 02/15/20 AGE: 85 : 36 SEX: M [facility] AUTHOR: WENDY KENNY PHYSICIAN: REFERRING PHYSICIAN: CHRISTOPHER UMANA MD DATE OF SERVICE: 02/17/20 Discharge Plan Patient Name: [facility]AVE [facility]Y [facility] [facility] 1935 Planned Disposition: Nursing Facility [facility] Anticipated Discharge Date: Discharge Date: Expected LOS: Initial Reviewer: [email or web address] Initial Review Date: 02/15/2020 Generated: 02/17/20 7:17 pm Patient Name: DAVE ROY Page 94350 at 1818 All edits/amendments must be made on the electronic document DICTATION DATE: 02/17/201816 PROFESSOR OF ANTHROPOLOGY: SHIV 02/17/201816 RPT#: [id number] DC DATE: STATUS: ADM IN [facility] [address] [place] [address] END OF REPORT
--- NOTE | 2020-02-17 18:31 | MORECARE ---
CASE MANAGEMENT DISCHARGE SUMMARY PATIENT: DAVE ROY JR UNIT: [id number] ADM DATE: 02/15/20 AGE: 85 : 36 SEX: M ROOM/BED: D.[facility] AUTHOR: WENDY KENNY PHYSICIAN: REFERRING PHYSICIAN: CHRISTOPHER UMANA MD DATE OF SERVICE: 02/17/20 Discharge Plan Patient Name: DAVE ROY [facility] [facility] 1935 Planned Disposition: Nursing Facility [facility] Cert Anticipated Discharge Date: Discharge Date: Expected LOS: Initial Reviewer: [email or web address] Initial Review Date: 02/15/2020 Generated: 02/17/20 7:30 pm DCPIA - Discharge Planning Initial Assessment Updated by [email or web address]: Darcy Ayala on 02/17/20 6:29 pm * Is the patient Alert and Oriented? Yes * PCP KELSEY * Pharmacy [facility] * Preadmission Environment Retirement [facility] * Facility Name [facility] * ADLs Independent * List name and contact numbers for known caregivers / representatives who currently or will assist patient after discharge: [facility] - [phone] MARY JO [facility] - [phone] ALEX ROY BROTHER [phone] JAGJIT ROY [phone] * Verbal permission to speak to the caregivers and representatives has been obtained from the patient. Yes * Additional services required to return to the preadmission environment? No * Can the patient safely return to the preadmission environment? Yes * Has this patient been hospitalized within the prior 30 days at any hospital? No Last DP export: 02/17/20 5:18 p Patient Name: DAVE ROY Page 17210 at 1831 All edits/amendments must be made on the electronic document DICTATION DATE: 02/17/201829 MEDICAL COMMUNICATION SPECIALIST: SHIV 02/17/201829 RPT#: [id number] DC DATE: STATUS: ADM IN [facility] [address] [place] [address] END OF REPORT
--- NOTE | 2020-02-17 18:38 | MORECARE ---
CASE MANAGEMENT DISCHARGE SUMMARY PATIENT: DAVE ROY JR UNIT: [id number] ADM DATE: 02/15/20 AGE: 85 : 36 SEX: M ROOM/BED: D.[facility] AUTHOR: ZOYADOC PHYSICIAN: REFERRING PHYSICIAN: CHRISTOPHER UMANA MD DATE OF SERVICE: 02/17/20 Discharge Plan Patient Name: DAVE ROY [facility] [facility] 1935 Planned Disposition: Nursing Facility [facility] Cert Anticipated Discharge Date: Discharge Date: Expected LOS: Initial Reviewer: [email or web address] Initial Review Date: 02/15/2020 Generated: 02/17/20 7:37 pm Comments DCP- Discharge Planning Updated by [email or web address]: Darcy Ayala on 02/17/20 5:[address] Patient Name: DAVE ROY Admission Status: ER Accout number: [id number] Admission Date: 02-15-2020 : 1935 Admission Diagnosis: Attending: CHRISTOPHER UMANA Current LOS: 2 Anticipated DC Date: Planned Disposition: Nursing Facility [facility] Cert Primary Insurance: MEDICARE A & B Discharge Planning Comments: CM met with patient at bedside after explaining CM role and obtaining verbal consent. Patient lives at home [facility] [phone] plans to return there upon discharge. AUTUMN completed Patient feels this would be a safe discharge. CM discussed availability / needs of home health and medical equipment. Patient denies any discharge needs at this time. CM will continue to follow and assist as needed with discharge planning / needs. Hooker Up: Darcy Ayala DCPIA - Discharge Planning Initial Assessment Updated by [id number]: Darcy Ayala on 02/17/20 6:29 pm * Is the patient Alert and Oriented? Yes * PCP KELSEY * Pharmacy [facility] * Preadmission Environment Detention [facility] * Facility Name [facility] * ADLs Independent * List name and contact numbers for known caregivers / representatives who currently or will assist patient after discharge: MAJOR DAVION [facility] - [phone] MARY JOAngela [facility] - [phone] ALEX KIRILL - [phone] JAGJIT ROY - [phone] * Verbal permission to speak to the caregivers and representatives has been obtained from the patient. Yes * Additional services required to return to the preadmission environment? No * Can the patient safely return to the preadmission environment? Yes * Has this patient been hospitalized within the prior 30 days at any hospital? No Last DP export: 02/17/20 5:31 p Patient Name: DAVE ROY Page 08300 at 1838 All edits/amendments must be made on the electronic document DICTATION DATE: 02/17/201836 EMPLOYMENT SPECIALIST: DM 02/17/201836 RPT#: [id number] DC DATE: STATUS: ADM IN [facility] [address] [place] [address] END OF REPORT
[2020-02-17 19:22] LABS: NEUT - BF 90 %
--- NOTE | 2020-02-17 19:30 | NUR ---
PT RECEIVED WITH EYES CLOSED AND CHEST RISING. EASILY AWOKEN TO VERBAL STIMULI. DENIES PAIN. DRESSING TO RIGHT LOWER ABDOMEN C/D/I. NGT TO LIS. CONTINUES NPO STATUS. CONFUSION NOTED. ROBERTSON PRESENT WITH LUKASZ URINE NOTED. WILL CONTINUE TO OBSERVE.
--- NOTE | 2020-02-17 22:07 | NUR ---
PT WITH EYES CLOSED AND CHEST RISING. EASILY AWOKEN TO VERBAL STIMULI. PT NPO WITH MEDICATIONS HELD. DRESSING TO RIGHT LOWER ABDOMEN C/D/I. WILL CONTINUE TO OBSERVE.
[2020-02-18] VITALS (24 sets, daily range): BP systolic 96–134; BP diastolic 48–77
--- NOTE | 2020-02-18 02:35 | NUR ---
PT ECG SHOWING AFIB AND QUICKLY SINUS TACH AND BACK. NO ORDERS RECEIVED AT THIS TIME
[2020-02-18 04:32] LABS: BASOPHILS 0 % (0-2); EOSINOPHILS 0.1 % (0-7); HEMOGLOBIN 9.2 g/dL (13.5-17.5); IMMATURE GRANULOCYTES 0.2 % (0-5); LYMPHOCYTES 7.5 % (15-50); MCH 27.3 pg (26.0-34.0); MCHC 31.7 g/dL (31.0-37.0); MCV 86.1 fL (80.0-100.0); MEAN PLATELET VOLUME 10.3 fL (7.4-10.4); MONOCYTES 6.1 % (2-11); NEUTROPHILS 86.1 % (40-80); PLATELET COUNT 193 10x3/uL (130-400); RBC 3.37 10x6/uL (4.20-6.10); RDW 17.3 % (11.5-14.5); WBC 8.8 10x3/uL (4.8-10.8)
[2020-02-18 04:34] LABS: ANION GAP 13.5 mmol/L (8-16); CALCIUM 7.7 mg/dL (8.5-10.1); CARBON DIOXIDE 23.5 mmol/L (21.0-32.0); CREATININE - SERUM 3.2 mg/dL (0.6-1.3)
--- NOTE | 2020-02-18 05:51 | NUR ---
PT GIVEN BATH WITH LINEN CHANGE. PT ATTEMPTING TO HIT STAFF WHILE UNRESTRAINED. PT RERESTRAINED.
--- NOTE | 2020-02-18 13:18 | NUR ---
0700 REPORT RECIEVED AND CARE ASSUMED OF PATIENT.. SEE SHIFT ASSESMENT FOR FINDINGS... PATIENT IS WITH SOFT WRIST RESTRAINTS ON, IS NON COMMUNICATIVE 0800 DR RODRIGUEZ IN TO SEE PATIENT.. UPDATE IS GIVEN 899 DR ARORA IN TO SEE PATIENT NGT ADVANCED 10CM PER DR ARORA 0930 LAB IN AND BLOOD DRAWN FROM CVL BY NURSE FOR VANC TROUGH 1000 WITHOUT CHANGES..REPOSITIONED .. PT OPENS EYES AND MOANS LOUDLY AFTER STIMULATION IS OVER HE GOES BACK TO SLEEP
--- NOTE | 2020-02-18 13:41 | NUR ---
1200 WIHTOUT CHANGES IN PATIENT, FSBS WITH INSULIN COVER.. 1300 I AND O DONE.. PT IS REPOSTIONED. 1340 PT APPERS TO BE UNCOMFORTABLE , CONTINUES WITHOUT RESPONSES , OTHER THAT MOANING WITH TACTILE STIMULATION
--- NOTE | 2020-02-18 14:21 | NUR ---
1415 MORPHINE 2MG IV GIVEN FOR PAIN
--- NOTE | 2020-02-18 15:06 | NUR ---
1500 REASSESMENT MORPHINE .. PT IS NOT GRIMACING OR MOANING AT THIS TIME..
[2020-02-18 17:08] LABS: ANION GAP 16.5 mmol/L (8-16); CALCIUM 7.8 mg/dL (8.5-10.1); CARBON DIOXIDE 22.3 mmol/L (21.0-32.0); CREATININE - SERUM 3.2 mg/dL (0.6-1.3); MAGNESIUM - SERUM 1.4 mg/dL (1.8-2.4); POTASSIUM - SERUM 3.8 mmol/L (3.5-5.1)
--- NOTE | 2020-02-18 18:31 | NUR ---
1600 REPOSITIONED .. WITHOUT MOANING ... O2 SAT IS 94 O2 BY NASAL CANNULA PLACED ON PATIENT AT 2 LITERS 1700 TPN AND LIPIDS INITIATED.. PLACED TO MEDIAL PORT OF CVL AND CVP IS IN DISTAL PORT..
--- NOTE | 2020-02-18 18:50 | NUR ---
1800 DR RODRIGUEZ BEEPED PER HIS REQUEST FOR RESULTS OF BMP LAB [phone] HAS NOT RETURNED CALL
[2020-02-19] VITALS (54 sets, daily range): BP systolic 92–187; BP diastolic 47–97
--- NOTE | 2020-02-19 04:00 | NUR ---
OBTAINED AM LABS PER ORDER.
[2020-02-19 04:12] LABS: BASOPHILS 0.1 % (0-2); EOSINOPHILS 0.6 % (0-7); HEMATOCRIT 30.5 % (42.0-54.0); HEMOGLOBIN 9.7 g/dL (13.5-17.5); IMMATURE GRANULOCYTES 0.4 % (0-5); LYMPHOCYTES 7.9 % (15-50); MCH 27.3 pg (26.0-34.0); MCHC 31.8 g/dL (31.0-37.0); MCV 85.9 fL (80.0-100.0); MEAN PLATELET VOLUME 10.3 fL (7.4-10.4); MONOCYTES 6.2 % (2-11); NEUTROPHILS 84.8 % (40-80); RBC 3.55 10x6/uL (4.20-6.10); RDW 17.6 % (11.5-14.5); WBC 10.8 10x3/uL (4.8-10.8)
[2020-02-19 04:13] LABS: PLATELET COUNT 146 10x3/uL (130-400)
[2020-02-19 04:26] LABS: CALCIUM 8.1 mg/dL (8.5-10.1); CARBON DIOXIDE 22.8 mmol/L (21.0-32.0); CREATININE - SERUM 3.2 mg/dL (0.6-1.3); MAGNESIUM - SERUM 1.4 mg/dL (1.8-2.4); PHOSPHOROUS 2.5 mg/dL (2.5-4.9); POTASSIUM - SERUM 3.8 mmol/L (3.5-5.1)
--- NOTE | 2020-02-19 05:00 | NUR ---
REPOSITIOND PT. PROVIDED ORAL CARE.
--- NOTE | 2020-02-19 08:02 | NUR ---
Nutrition consult: Received order from Dr. Arita to start TPN 02/18/20 TPN now infusing @ 40 ml/hr with 20% 250 ml intralipids Mg Low - receiving mag IV to replace Wt: 171# IVF has been discontinued per neprology due to + fluid balance. Will continue current TPN regimen at this time. RDN following.
[2020-02-19 12:42] LABS: BASOPHILS 0 % (0-2); EOSINOPHILS 0.3 % (0-7); HEMATOCRIT 32.4 % (42.0-54.0); HEMOGLOBIN 10.2 g/dL (13.5-17.5); IMMATURE GRANULOCYTES 0.3 % (0-5); LYMPHOCYTES 7.9 % (15-50); MCH 26.8 pg (26.0-34.0); MCHC 31.5 g/dL (31.0-37.0); MCV 85.3 fL (80.0-100.0); MEAN PLATELET VOLUME 10.2 fL (7.4-10.4); MONOCYTES 7.3 % (2-11); NEUTROPHILS 84.2 % (40-80); PLATELET COUNT 132 10x3/uL (130-400); RDW 17.4 % (11.5-14.5)
[2020-02-19 12:48] LABS: WBC 7.1 10x3/uL (4.8-10.8)
[2020-02-19 12:51] LABS: INR 1.21 (0.85-1.17); PROTIME 15.3 SECONDS (11.6-15.0)
[2020-02-19 13:06] LABS: ANION GAP 14.6 mmol/L (8-16); CALCIUM 7.7 mg/dL (8.5-10.1); CARBON DIOXIDE 18.4 mmol/L (21.0-32.0); CREATININE - SERUM 3.1 mg/dL (0.6-1.3)
--- NOTE | 2020-02-19 16:21 | NUR ---
DR VILLEGAS INCREASED RR TO 24
--- NOTE | 2020-02-19 19:00 | NUR ---
REPORT RECEVIED FROM THE OFF GOING RN. SEE ASSEESSMENT IN THE PTS FLOW SHEET. PT SEDATED ON THE VENTILATOR. AFIB RATE 130-140'S NOTED. CVL TO LEFT SUBCLAVIAN NOTED. SEE IV FLUIDS IN THE FLOW SHEET. BILATERAL ARMS NOTED TO HAVE SKIN TEARS ALL WITH DRESSIGS. RIGHT ARM WEEPING EDEMA NOTED. R RADIAL OMARI NOTED WITH A GOOD WAVE FORM. 3 LAP INCISIONS NOTED MID ABD C/D/I. CHERYL 1 AND 2 LABLED AND NOTED ON THE RIGHT ABD. COMPRESSED WITH SERSOUSANGENIOUS DRAINAGE NOTED. FC NOTED WITH DARK YELLOW URINE. CALL LIGHT IN REACH. WILL CONTG POC.
--- NOTE | 2020-02-19 20:40 | NUR ---
CVP 13. NS DECREASED TO 50ML/H PER ORDERS. WILL CONT POC.
--- NOTE | 2020-02-19 21:35 | NUR ---
HOLD PO MEDS PER DR ARORA.
--- NOTE | 2020-02-19 23:00 | NUR ---
REASSESSMENT COMPLETED. SEE FLOW SHEET. CONT TO EDWIN NELSON. SEE IV FLUIDS.
[2020-02-20] VITALS (91 sets, daily range): BP systolic 82–138; BP diastolic 39–115
--- NOTE | 2020-02-20 00:58 | NUR ---
DR ARORA CALLED FOR AN UPDATE ON THE PTS CONDITION. UPDATE GIVEN. NO NEW ORDERS AT THIS TIME. CONT EDWIN VALENTEPHED.
--- NOTE | 2020-02-20 03:00 | NUR ---
REASSESSMENT COMPLETED. SEE FLOW SHEET. CONT TO EDWIN NELSON. WILL CONT POC.
[2020-02-20 06:05] LABS: ANION GAP 11.5 mmol/L (8-16); CALCIUM 7.4 mg/dL (8.5-10.1); CARBON DIOXIDE 22.8 mmol/L (21.0-32.0); CREATININE - SERUM 3.1 mg/dL (0.6-1.3); PHOSPHOROUS 2.3 mg/dL (2.5-4.9); POTASSIUM - SERUM 4.3 mmol/L (3.5-5.1)
[2020-02-20 06:08] LABS: MAGNESIUM - SERUM 1.8 mg/dL (1.8-2.4)
[2020-02-20 06:09] LABS: INR 1.32 (0.85-1.17); PROTIME 16.2 SECONDS (11.6-15.0)
[2020-02-20 06:10] LABS: APTT 46.3 SECONDS (22.8-39.4)
[2020-02-20 06:19] LABS: BASOPHILS 0.1 % (0-2); EOSINOPHILS 0.1 % (0-7); HEMATOCRIT 26.3 % (42.0-54.0); HEMOGLOBIN 8.6 g/dL (13.5-17.5); IMMATURE GRANULOCYTES 0.5 % (0-5); LYMPHOCYTES 10.4 % (15-50); MCH 27.3 pg (26.0-34.0); MCHC 32.7 g/dL (31.0-37.0); MCV 83.5 fL (80.0-100.0); MEAN PLATELET VOLUME 11.5 fL (7.4-10.4); MONOCYTES 10.1 % (2-11); NEUTROPHILS 78.8 % (40-80); RBC 3.15 10x6/uL (4.20-6.10); RDW 16.6 % (11.5-14.5)
[2020-02-20 06:34] LABS: PLATELET COUNT 103 10x3/uL (130-400); WBC 9.8 10x3/uL (4.8-10.8)
--- NOTE | 2020-02-20 07:00 | NUR ---
ASSESSMENT COMPLETE PER FLOWSHEET. WILL CONTINUE TO MONITOR.
--- NOTE | 2020-02-20 08:03 | NUR ---
Nutrition follow-up: Pt post-surgery; intubated, sedated TPN @ 40 ml/hr with 20% 250 ml intralipids q 48 hours Labs reviewed Elevated lactic acid Electrolytes adjusted Will continue TPN at 40 ml/hr at this time. RDN following.
--- NOTE | 2020-02-20 08:11 | OP ---
PATIENT NAME: DAVE ROY JR MEDICAL RECORD: [id number] :[birth year] LOCATION:[facility] D.2301 ADMISSION DATE:02/15/20 SURGEON: SIMON ARORA MD DATE OF OPERATION: 02/19/2020 SURGEON: Simon Arora MD PREOPERATIVE DIAGNOSIS: Perforated duodenal ulcer. POSTOPERATIVE DIAGNOSIS: Perforated duodenal ulcer, intra-abdominal abscess, septic shock, and acute kidney injury. PROCEDURE: Laparoscopic repair of duodenal ulcer with laparoscopic Isra patch, laparoscopic cholecystectomy and laparoscopic abdominal washout. SPECIMENS: 1. Gallbladder. 2. Intraabdominal abscess fluid. 3. Esophagogastroduodenoscopy by Dr. Wyatt. CO-SURGEON: Dr. Wyatt. ANESTHESIA: General. COMPLICATIONS: None. WOUND CLASS: Grossly contaminated. OPERATIVE COURSE: After consent was obtained, the patient was taken to operating room and placed in the supine position on the operating table. Next, general anesthesia was given via endotracheal intubation. An arterial line was placed in the right radial artery. The abdomen was prepped and draped in typical sterile fashion. Timeout was taken to confirm the correct patient and procedure. At this time, local anesthetic was injected just above the umbilicus. A stab incision made with 11-blade scalpel. Using an 11-mm bladeless optical trocar, the abdomen was entered under direct laparoscopic vision. Adequate pneumoperitoneum was achieved. At this time, 3 additional trocars were placed. A 12-mm trocar and 5-mm trocar in the right lateral quadrants, 5-mm trocar into the midline. A subxiphoid incision was made and the Dave retractor was used to elevate of the left lobe of the liver. There was a liter of purulent intraabdominal fluid. The fluid was suctioned into a Lukens trap. It was sent for Gram stain culture and sensitivity. The remaining fluid in the abdomen was suctioned. The abdomen was copiously irrigated and suctioned multiple times. There was a significant amount of indurated tissue just between the anterior duodenum and the gallbladder. The fundus of the gallbladder was grasped and retracted cephalad gently dissecting the anterior portion of the duodenum off the gallbladder infundibulum. At this time, Dr. Wyatt performed an EGD to help with identification of the perforation. He bends over to pass the scope transorally posterior to the epiglottis through the esophagus and the stomach without difficulty under direct endoscopic vision. He advanced the scope. He gently and gradually advanced the scope to the distal stomach to the antral region. Again, the antrum appeared to be healthy with no areas of inflammation or bleeding. At this time, the endoscope was passed through the pylorus. Immediately noted in the superior and anterior surface the first and second portion of the duodenum were air bubbles. The perforation was OPERATIVE REPORT [id number] DAVE ROY JR identified and the first portion, possible early second portion of the duodenum in the anterior superior position. He advanced scope to the third portion of the duodenum. The area of perforation was closed using a 3-0 Stratafix suture. A second layer of 3-0 Vicryl simple interrupteds were used to close the duodenum in a 2 layer fashion. The scope was retracted across the area of closure. The upper abdomen was instilled with irrigation. The scope was passed through the area multiple times without evidence of leak. No air bubbles were noted. The scope was easily traversed across repair. At this time, these gastroscope was retracted back across the repair one final time and inspected and retracted the stomach. At this time, the endoscopy was discontinued. Dr. Wyatt removed the scope without difficulty. Next, Tisseel was placed, 10 cc of Tisseel were placed over the suture repair of the duodenum. At this time, in an effort to retract the liver, there was a large perforation of the gallbladder. At this time, a cholecystectomy was performed. The fundus was grabbed and retracted laterally. The infundibulum was retracted superiorly or cephalad. The dissection continued, the triangle of safety was identified. Cystic duct lateral, cystic artery medial, liver in the posterior window. Two clips were placed in the proximal cystic artery, 1 clip distal, 3 clips placed in the proximal cystic duct, and 1 clip distal. The duct and artery were transected with laparoscopic Metzenbaum scissors. The gallbladder was then retracted off the liver bed using electrocautery. It was grasped with the tenaculum and removed through the 12-mm trocar and sent for permanent pathology. At this time, again the right upper quadrant and the left upper quadrant copiously irrigated and suctioned with 3 liters of warm normal saline. Manfred powder was applied to the liver bed. At this time, the greater omentum and retracted cephalad exposing the transverse colon. Transverse mesocolon was grasped and retracted cephalad. At this time, the greater omentum was patched over the area of the first portion of the duodenum. Several stay sutures were placed onto the anterior stomach and greater omentum as well as several sutures on the duodenum to the greater omentum creating a tissue apposition for a greater omentum Isra patch. Next, two 19 Clint CHERYL drains were placed in to the abdomen. The wound was placed into the right upper quadrant anterior to the liver and in the right pericolic gutter. A second was placed deep into the gallbladder fossa. At this time, Dave liver retractor was removed. The abdominal cavity was inspected again, no evidence of bowel injury or bleeding. The abdomen again was copiously irrigated, all remaining irrigation was suctioned from the abdomen as possible. At this time, all remaining instruments removed. The trocars were removed. The CHERYL drains were secured using 2-0 nylon sutures. Remaining skin holes were closed with esau. At the end of the case, all needle and instrument counts were correct. No complications occurred. The patient was transferred to the ICU in critical condition, intubated. TRANSINT:[id number] Voice Confirmation ID: [id number] DOCUMENT ID: [id number] SIMON ARORA MD at 0811 CC: [id number] DICTATION DATE: 02/19/20 1507 RESEARCH ANALYST: 02/19/20 2356 ADM IN [place] [address] [place] [address]
--- NOTE | 2020-02-20 09:00 | NUR ---
DR ARORA HERE. NEW ORDERS OBTAIN TO TURN OFF VASOPRESSIN AND RATE ON VENT NEEDS TO BE 18. JOSÉ CALLED RT. WILL TALK TO DR VILLEGAS ABOUT RATE.
--- NOTE | 2020-02-20 09:30 | NUR ---
DECREASED RR TO [address] VILLEGAS
--- NOTE | 2020-02-20 15:16 | OP ---
PATIENT NAME: DAVE ROY JR MEDICAL RECORD: [id number] :37 LOCATION:[facility] D.2301 ADMISSION DATE:02/15/20 SURGEON: SRIKANTH ACOSTA MD DATE OF OPERATION: 02/19/2020 PREOPERATIVE DIAGNOSIS: Perforated duodenal ulcer. POSTOPERATIVE DIAGNOSIS: Perforated duodenal ulcer. PROCEDURES: Esophagogastroduodenoscopy without biopsies. SURGEON: Srikanth Acosta MD EXECUTIVE CONSULTANT: None. BLOOD LOSS: Minimal for my part of the procedure. INDICATIONS: Dr. Arita performed the laparoscopy, cholecystectomy and oversewing of the ulcer. He wanted me to perform an upper endoscopy to visualize the ulcer and also to place my gastroscope across the area to be oversewn so that it would not be too tight and cause an obstruction of food going by. OPERATIVE COURSE: The patient was already asleep. A bite block was inserted. I stood at the patient's head. A gastroscope was inserted into the mouth. It was advanced easily into the hypopharynx. The esophagus was easily intubated as were the stomach and duodenum. Upon withdrawal, retroflexed and angulus views were obtained. I then readvanced the duodenum. Dr. Arita performed oversewing of the duodenum. I was able to visualize this endoscopically. I was able to advance across the area that had been repaired and the repair did not appear to be too tight. The gastroscope was then removed. My participation in the operation consisted only of the upper endoscopy. TRANSINT:[id number] Voice Confirmation ID: [id number] DOCUMENT ID: [id number] SRIKANTH ACOSTA MD at 1516 CC: [id number] DICTATION DATE: 02/19/20 1635 CORRESPONDENCE SECTION SUPERVISOR: 02/20/20 0021 ADM IN [facility] [address] [place] [address]
--- NOTE | 2020-02-20 19:00 | NUR ---
ASSESSMENT COMPLETE PER FLOWSHEET. WILL CONTINUE TO MONITOR.
--- NOTE | 2020-02-20 21:30 | NUR ---
BATH GIVEN LINENS CHANGED. PT REPOSITIONED.
[2020-02-21] VITALS (28 sets, daily range): BP systolic 81–160; BP diastolic 34–75
--- NOTE | 2020-02-21 | NUR ---
REPOSITIONED. SR UP X 2. VSS. WILL CONTINUE TO MONITOR.
--- NOTE | 2020-02-21 03:00 | NUR ---
REASSESSED. NO CHANGES NOTED.
[2020-02-21 06:00] LABS: INR 1.2 (0.85-1.17); PROTIME 15.1 SECONDS (11.6-15.0)
[2020-02-21 06:22] LABS: BASOPHILS 0.1 % (0-2); EOSINOPHILS 0 % (0-7); HEMATOCRIT 25.1 % (42.0-54.0); HEMOGLOBIN 8.2 g/dL (13.5-17.5); IMMATURE GRANULOCYTES 0.8 % (0-5); LYMPHOCYTES 6.6 % (15-50); MCH 27.5 pg (26.0-34.0); MCHC 32.7 g/dL (31.0-37.0); MCV 84.2 fL (80.0-100.0); MEAN PLATELET VOLUME 10.9 fL (7.4-10.4); MONOCYTES 8.9 % (2-11); NEUTROPHILS 83.6 % (40-80); PLATELET COUNT 106 10x3/uL (130-400); RBC 2.98 10x6/uL (4.20-6.10); RDW 16.8 % (11.5-14.5)
[2020-02-21 06:29] LABS: ALBUMIN 1.1 g/dL (3.4-5.0); ANION GAP 12.3 mmol/L (8-16); BILIRUBIN - TOTAL 0.33 mg/dL (0.2-1.3); CARBON DIOXIDE 22.1 mmol/L (21.0-32.0); CREATININE - SERUM 3.1 mg/dL (0.6-1.3); MAGNESIUM - SERUM 1.6 mg/dL (1.8-2.4); PHOSPHOROUS 2.5 mg/dL (2.5-4.9); POTASSIUM - SERUM 4.4 mmol/L (3.5-5.1); PROTEIN - SERUM 3.8 g/dL (6.4-8.2); VANCOMYCIN - RANDOM 17.9 ug/mL (10.0-20.0)
[2020-02-21 06:32] LABS: WBC 13.2 10x3/uL (4.8-10.8)
[2020-02-21 06:35] LABS: APTT 56.3 SECONDS (22.8-39.4); D-DIMER-QUANTITATIVE 13.26 ug/mLFEU (0.20-0.54)
--- NOTE | 2020-02-21 07:00 | NUR ---
REC'D REPORT AND RESUMED CARE, ETT TO VENTILATION AND SECURED, O2 SAT 98% WITH 35% FIO2, OTHER VSS, SEDATION IN USE, AROUSES TO TACTILE STIMULI, DOES NOT FOLLOW COMMANDS, ASSESSMENT COMPLETED PER FLOWSHEET, NO PRESSORS IN USE, ORAL CARE AND SUCTION COMPLETED, REPOSITIONED UP AND TO BACK, WILL CONTINUE WITH POC
[2020-02-21 08:41] LABS: % SATURATION 23 % (15-55); IRON 11 ug/dl (35-150); TOTAL IRON BIND CAPACITY 46 ug/dl (260-445)
[2020-02-21 08:44] LABS: UNSAT IRON BIND CAPACITY 35 ug/dl (150-375)
--- NOTE | 2020-02-21 08:45 | NUR ---
Nutrition follow-up: Chart reviewed Mg continues low Pt intubated, sedated spetic shock with continued pressors Mg adjusted in TPN RDN following.
--- NOTE | 2020-02-21 09:20 | NUR ---
DR ARORA AT BEDSIDE FOR EVAL, IVF CHANGED TO 90CC/HR, SPOKE WITH POA, STATUS UPDATED
--- NOTE | 2020-02-21 11:00 | NUR ---
SHOWING NSR ON MONITOR, AMNIODERONE GTT DC'D
--- NOTE | 2020-02-21 12:19 | NUR ---
@1030 DECREASED RR TO 15 AND O2 TO 35%
--- NOTE | 2020-02-21 17:35 | NUR ---
PRBC INITIATED PER ORDER
--- NOTE | 2020-02-21 20:50 | NUR ---
1/ UNIT OF PRBC'S COMPLETED, VSS, WILL MONITOR FOR ADVERSE EFFECTS.
--- NOTE | 2020-02-21 23:10 | NUR ---
REASSESSMENT PER FLOWSHEET, NO ACUTE CHANGES NOTED AT THIS TIME. ORAL CARE AND SUCTIONING PROVIDED, SR ON CM, VSS.
[2020-02-22] VITALS (24 sets, daily range): BP systolic 90–139; BP diastolic 49–81
--- NOTE | 2020-02-22 01:36 | NUR ---
REPOSITIONED FOR COMFORT, ORAL CARE AND SUCTIONING PROVIDED, VSS. REMAINS IN SR ON CM.
--- NOTE | 2020-02-22 03:20 | NUR ---
REASSESSMENT PER FLOWSHEET, NO ACUTE CHANGES NOTED AT THIS TIME. PT POSITIONED FOR COMFORT, ORAL CARE AND SUCTIOING COMPLETED, SR ON CM.
--- NOTE | 2020-02-22 05:43 | NUR ---
ATTEMPTS TO DECREASE SEDATION PER MD ORDER UNSUCCESSFUL. PT RR IN LOW 30'S AND GAGGING/COUGHING ON TUBE. ATTEMPTS TO VERBALLY CALM NOT SUCCESSFUL, PT REMAINS UNABLE TO FOLLOW COMMANDS.
[2020-02-22 05:58] LABS: BASOPHILS 0.1 % (0-2); EOSINOPHILS 0 % (0-7); IMMATURE GRANULOCYTES 1.7 % (0-5); LYMPHOCYTES 6.8 % (15-50); MCH 27.3 pg (26.0-34.0); MCHC 32.6 g/dL (31.0-37.0); MCV 83.8 fL (80.0-100.0); MEAN PLATELET VOLUME 10.9 fL (7.4-10.4); NEUTROPHILS 83.4 % (40-80); PLATELET COUNT 121 10x3/uL (130-400); WBC 16.2 10x3/uL (4.8-10.8)
[2020-02-22 06:05] LABS: HEMOGLOBIN 10.1 g/dL (13.5-17.5)
[2020-02-22 06:14] LABS: ANION GAP 15.5 mmol/L (8-16); BILIRUBIN - TOTAL 0.46 mg/dL (0.2-1.3); CALCIUM 8.5 mg/dL (8.5-10.1); CARBON DIOXIDE 21.1 mmol/L (21.0-32.0); CREATININE - SERUM 3.3 mg/dL (0.6-1.3); POTASSIUM - SERUM 4.6 mmol/L (3.5-5.1); PROTEIN - SERUM 4.6 g/dL (6.4-8.2); VANCOMYCIN - RANDOM 17.3 ug/mL (10.0-20.0)
[2020-02-22 06:15] LABS: ALBUMIN 1.4 g/dL (3.4-5.0); PHOSPHOROUS 3.2 mg/dL (2.5-4.9)
--- NOTE | 2020-02-22 07:57 | NUR ---
SEDATION TURNED OFF FOR CPAP TRIAL.
--- NOTE | 2020-02-22 10:24 | NUR ---
PT TOLERATED CPAP TRIAL FROM 0930 TO 1000; NOTED TIDAL VOLUME UP TO 1700 WITH RR 6. WILL NOTIFY RIP TAILER. PT ALSO NOTED EASILY AGGITATED, WILL OPEN EYES, COUGH OVER VENT WITH GAG. PT NOT FOLLOWING COMMANDS. VSS. WILL CONTINUE PLAN OF CARE.
--- NOTE | 2020-02-22 12:26 | NUR ---
NO ACUTE DISTRESS NOTED. VSS. NO CHANGE. TURNED Q2H. ORAL CARE PROVIDED Q2H. WILL CONTINUE PLAN OF CARE.
--- NOTE | 2020-02-22 14:20 | NUR ---
CHG BATH PROVIDED WITH TOTAL LINEN CHANGE. VSS. PT TURNED Q2H. ORAL CARE PROVIDED Q2H. WILL CONTINUE PLAN OF CARE.
--- NOTE | 2020-02-22 16:20 | NUR ---
NO ACUTE DISTRESS NOTED. NO CHANGE. VSS. REPOSITIONING AND ORAL CARE PROVIDED Q2H. WILL CONTINUE PLAN OF CARE.
--- NOTE | 2020-02-22 17:49 | NUR ---
VSS. NO ACUTE DISTRESS NOTED. SINUS RHYTHM. WILL CONTINUE PLAN OF CARE.
--- NOTE | 2020-02-22 19:15 | NUR ---
RESUMED CARE OF PT, ASSESSMENT PER FLOWSHEET, SEE FOR DETAILS. ORAL CARE AND SUCTIONING PROVIDED, POSITIONED FOR COMFORT, VSS.
--- NOTE | 2020-02-22 23:15 | NUR ---
REASSESSMENT PER FLOWSHEET, NO ACUTE CHANGES NOTED AT THIS TIME, CONT POC.
[2020-02-23] VITALS (24 sets, daily range): BP systolic 115–151; BP diastolic 60–82
--- NOTE | 2020-02-23 03:15 | NUR ---
HR SR WITH OCC PAC'S ON CM, REASSESSMENT PER FLOWSHEET. ORAL CARE AND SUCTIONING PROVIDED, POSITIONED FOR COMFORT, VSS.
--- NOTE | 2020-02-23 04:19 | NUR ---
ABG'S REVIEWED, FIO2 INCREASED TO 35% PER RT, VSS.
[2020-02-23 05:43] LABS: BASOPHILS 0.1 % (0-2); EOSINOPHILS 0 % (0-7); HEMATOCRIT 28.8 % (42.0-54.0); HEMOGLOBIN 9.3 g/dL (13.5-17.5); LYMPHOCYTES 5.3 % (15-50); MCH 27.1 pg (26.0-34.0); MCHC 32.3 g/dL (31.0-37.0); MEAN PLATELET VOLUME 11.2 fL (7.4-10.4); MONOCYTES 6.7 % (2-11); NEUTROPHILS 86.9 % (40-80); PLATELET COUNT 136 10x3/uL (130-400); RBC 3.43 10x6/uL (4.20-6.10); RDW 17.4 % (11.5-14.5); WBC 14.1 10x3/uL (4.8-10.8)
[2020-02-23 06:21] LABS: ALBUMIN 1.4 g/dL (3.4-5.0); ANION GAP 14.1 mmol/L (8-16); BILIRUBIN - TOTAL 0.45 mg/dL (0.2-1.3); CALCIUM 8.6 mg/dL (8.5-10.1); CARBON DIOXIDE 20.6 mmol/L (21.0-32.0); CREATININE - SERUM 3.4 mg/dL (0.6-1.3); MAGNESIUM - SERUM 2.3 mg/dL (1.8-2.4); PHOSPHOROUS 3.8 mg/dL (2.5-4.9); POTASSIUM - SERUM 4.7 mmol/L (3.5-5.1); PROTEIN - SERUM 4.2 g/dL (6.4-8.2)
--- NOTE | 2020-02-23 06:47 | NUR ---
PARTIAL LINEN CHANGE DONE, POSITIONED FOR COMFORT, CHERYL DRESSINGS AND ARM DRESSINGS CHANGED.
--- NOTE | 2020-02-23 08:23 | NUR ---
LYING IN BED ON VENT AT THIS TIME. NO ACUTE DISTRESS NOTED. PT CURRENTLY CALM, BUT EASILY BECOMES AGGITATED WHEN PT CARE IS PROVIDED. PT TURNED Q2H, ORAL CARE PROVIDED Q2H. VSS. WILL CONTINUE PLAN OF CARE.
--- NOTE | 2020-02-23 10:22 | NUR ---
DR UMANA ROUNDING ON PT. UPDATES PROVIDED.
--- NOTE | 2020-02-23 12:00 | NUR ---
ETT ADVANCED TO 27 AT THE LIP BY RT PER PHYSICIAN ORDERS.
--- NOTE | 2020-02-23 12:00 | NUR ---
TOLERATING CPAP TRAIL AT THIS TIME. VSS. NO ACUTE DISTRESS NOTED. WILL CONTINUE PLAN OF CARE.
--- NOTE | 2020-02-23 13:15 | NUR ---
CPAP TRIAL COMPLETE AT THIS TIME. PT SWITCHED BACK TO AC MODE PER RT. VSS. NO ACUTE DISTRESS NOTED. WILL CONTINUE PLAN OF CARE.
--- NOTE | 2020-02-23 14:56 | NUR ---
REPOSITIONING AND LINEN CHANGE PROVIDED AT THIS TIME. PT NOTED AGGITATED TRYING TO SELF EXTUBATE. REORIENTATION ATTEMPTED WITH NO SUCCESS. PRN VERSED ADMIN. PT NOW CALM. VSS. NO ACUTE DISTRESS NOTED. WILL CONTINUE PLAN OF CARE.
--- NOTE | 2020-02-23 15:26 | NUR ---
CURRENTLY CALM ON VENT. VSS. NO ACUTE DISTRESS NOTED. WILL CONTINUE PLAN OF CARE.
--- NOTE | 2020-02-23 17:36 | NUR ---
NO ACUTE DISTRESS NOTED. NO CHANGE. VSS. ORAL CARE AND REPOSITIONING PROVIDED Q2H. WILL CONTINUE PLAN OF CARE.
--- NOTE | 2020-02-23 19:35 | NUR ---
DR ACOSTA HERE TO SEE PT, UPDATES PROVIDED. VSS. WILL CONTINUE PLAN OF CARE.
[2020-02-24] VITALS (19 sets, daily range): BP systolic 109–155; BP diastolic 63–98
--- NOTE | 2020-02-24 07:00 | NUR ---
REC'D REPORT AND RESUMED , ETT TO VENTILATION AND SECURED, FIO2 AT 50% WITH A PEEP OF 5, SAT 98%, NGT TO LEFT NARE, TO LIWS, GREEN DRAINAGE TO CANISTER, LEFT SC WITH TPN, PROTONIX, AND FENTANYL INFUSING, ABDOMEN WITH CHERYL'S X2 WITH SEROSANGUINOUS DRAINAGE TO COMPRESSED BULBS, ROBERTSON TO GRAVITY WITH CLEAR YELLOW DRAINAGE TO BAG, SCD'S B/L, ASSESSMENT COMPLETED PER FLOWSHEET
[2020-02-24 07:02] LABS: BASOPHILS 0 % (0-2); EOSINOPHILS 0 % (0-7); HEMATOCRIT 28.6 % (42.0-54.0); HEMOGLOBIN 9.4 g/dL (13.5-17.5); IMMATURE GRANULOCYTES 0.6 % (0-5); LYMPHOCYTES 3.7 % (15-50); MCH 27.3 pg (26.0-34.0); MCHC 32.9 g/dL (31.0-37.0); MCV 83.1 fL (80.0-100.0); MEAN PLATELET VOLUME 10.4 fL (7.4-10.4); MONOCYTES 6.6 % (2-11); NEUTROPHILS 89.1 % (40-80); PLATELET COUNT 148 10x3/uL (130-400); RBC 3.44 10x6/uL (4.20-6.10); RDW 17.5 % (11.5-14.5); WBC 16.9 10x3/uL (4.8-10.8)
[2020-02-24 07:21] LABS: ANION GAP 16.8 mmol/L (8-16); BILIRUBIN - TOTAL 0.55 mg/dL (0.2-1.3); CARBON DIOXIDE 18.8 mmol/L (21.0-32.0); CREATININE - SERUM 3.7 mg/dL (0.6-1.3); MAGNESIUM - SERUM 2.5 mg/dL (1.8-2.4); PHOSPHOROUS 4.3 mg/dL (2.5-4.9); POTASSIUM - SERUM 4.6 mmol/L (3.5-5.1); PROTEIN - SERUM 4.6 g/dL (6.4-8.2); VANCOMYCIN - RANDOM 24.1 ug/mL (10.0-20.0)
[2020-02-24 07:24] LABS: ALBUMIN 1.9 g/dL (3.4-5.0)
--- NOTE | 2020-02-24 08:44 | NUR ---
Nutrition follow-up: Chart reviewed Pt remains intubated, sedated labs reviewed TPN @ 40 ml/hr Will continue current TPN regimen RDN following.
--- NOTE | 2020-02-24 09:30 | NUR ---
TO RADIOLOGY FOR CT OF ABD/PELVIS, VIA BED WITH HOSPITAL PERSONNEL X2, PORTABLE VENT IN PLACE, TOLERATED WITHOUT DIFFICULTY
--- NOTE | 2020-02-24 09:35 | NUR ---
BACK TO ROOM FROM RADIOLOGY, RECONNECTED TO MONITORS VSS, ORAL CARE AND SUCTION COMPLETED, REPOSITIONED TO RIGHT SIDE, PILLOW TO BACK, HEELS BRIDGED
--- NOTE | 2020-02-24 11:00 | NUR ---
PC FROM DAVID, DAUGHTER DORIE, STATED SHE SPOKE WITH FAMILY AND THE DECISION WAS MADE TO GO WITH HOSPICE. DISCUSSED WITH HER THAT CONSULT AND EVAL WOULD BE DONE, WHEN ACCEPTED WE WOULD BE ABLE TO HAVE FAMILY TO COME BEFORE PATIENT IS TAKEN OFF VENT. SHE VERBALIZED UNDERSTANDING, NO OTHER CHANGES FROM PREVIOUS ASSESSMENT
--- NOTE | 2020-02-24 14:07 | NUR ---
Pt has numerous skin tears on both arms. There is a 12cm x 14cm deep tissue injury that covers his sacrum/coccyx. Both heels are blanchable and no break down is noted. Weeping edema is noted. He has a mepilex sacral dressing and is being turned/repositioned. Heels are floated. Wound care will continue monitoring.
--- NOTE | 2020-02-24 18:00 | NUR ---
PC TO DAUGHTER DORIE WHO IS POA, DISCUSSED EXTUBATION TO COMFORT AND IF PROLONGED LINGERING TO START HOSPICE EVAL, STATES SHE AND FAMILY IS OK WITH EXTUBATION TO COMFORT AND AND IF NECESSARY TO HOSPICE, ELISE HATHAWAY RN WITNESSED [address] HERNANDEZ, WITH UPDATE ABOVE, NEW ORDER GIVEN FOR COMFORT
--- NOTE | 2020-02-24 19:20 | NUR ---
ALL IVF D'CD, EXTUBATED WITHOUT DIFFICULTY, 2MG MORPHINE GIVEN PER COMFORT ORDER, ORAL CARE AND SUCTION COMPLETED, NGT DC'D, PHONE CALL TO DAUGHTER, WITH STATUS UPDATE
[2020-02-25 03:00] VITALS: BP 120/0
[2020-02-25 07:00] VITALS: BP 116/60
--- NOTE | 2020-02-25 07:00 | NUR ---
RES'C RREPORT AND RESUMED CARE, AROUSES TO VSS, NON VERBAL, ASSESSMENT COMPLETED PER FLOWSHEET, REPOSITIONED TO RIGHT SIDE WITH PILLOW TO BACK, NO SIGN OF DISTRESS AT THIS TIME
--- NOTE | 2020-02-25 09:00 | NUR ---
RESTING COMFORTABLY, WITH NO SIGN OF DISTRESS, VSS, REPOSTIIONED TO BACK, NO ACUTE CHANGE FROM PREVIOUS, CALL TO [facility] FOR EVALUATION AND ADMIT IF APPROPRIATE
[2020-02-25 11:00] VITALS: BP 122/74
--- NOTE | 2020-02-25 11:00 | NUR ---
RESTING COMFORTABLY, WITH NO SIGNS OF DISTRESS, NO ACUTE CHANGE FROM PREVIOUS, WILL CONTINUE TO MONITOR
--- NOTE | 2020-02-25 12:00 | MORECARE ---
CASE MANAGEMENT DISCHARGE SUMMARY PATIENT: DAVE ROY JR UNIT: [id number] ADM DATE: 02/15/20 AGE: 85 : 36 SEX: M ROOM/BED: D.2301 AUTHOR: ZOYA,DOC PHYSICIAN: REFERRING PHYSICIAN: CHRISTOPHER UMANA MD DATE OF SERVICE: 02/25/20 Discharge Plan Patient Name: DAVE ROY Facility: [facility]:[place] : 1935 Planned Disposition: Nursing Facility [facility] Anticipated Discharge Date: Discharge Date: Expected LOS: Initial Reviewer: [email or web address] Initial Review Date: 02/15/2020 Generated: 02/25/20 1:00 pm Comments DCP- Discharge Planning Updated by [email or web address]: Rona Ty on 02/25/20 10:[address] CM contacted patient's POA (dtr) Demi Fuentes @[phone] regarding [facility]. Provided names of hospice and she chooses [facility]. CM contacted Mirela with [facility], provided required information, including answers to Covid-19 questions. Faxed information to [phone]. DCP- Discharge Planning Updated by [email or web address]: Darcy Ayala on 02/17/20 5:[address] Patient Name: DAVE ROY Admission Status: ER Accout number: [id number] Admission Date: 02-15-2020 : 1935 Admission Diagnosis: Attending: CHRISTOPHER UMANA Current LOS: 2 Anticipated DC Date: Planned Disposition: Nursing Facility [facility] Cert Primary Insurance: MEDICARE A & B Discharge Planning Comments: CM met with patient at bedside after explaining CM role and obtaining verbal consent. Patient lives at home [facility] [phone] plans to return there upon discharge. AUTUMN completed Patient feels this would be a safe discharge. CM discussed availability / needs of home health and medical equipment. Patient denies any discharge needs at this time. CM will continue to follow and assist as needed with discharge planning / needs. Procedure Writer: Darcy Ayala DCPIA - Discharge Planning Initial Assessment Updated by [email or web address]: Darcy Ayala on 02/17/20 6:29 pm * Is the patient Alert and Oriented? Yes * PCP KELSEY * Pharmacy [facility] * Preadmission Environment [place] * [facility] * ADLs Independent * List name and contact numbers for known caregivers / representatives who currently or will assist patient after discharge: MAJOR WHITT - [phone] MARY JO PINTO - SISTER - [phone] ALEX Turcios BROTHER- [phone] JAGJIT ROY - [phone] * Verbal permission to speak to the caregivers and representatives has been obtained from the patient. Yes * Additional services required to return to the preadmission environment? No * Can the patient safely return to the preadmission environment? Yes * Has this patient been hospitalized within the prior 30 days at any hospital? No External Providers [facility] Next Contact Date: Service Request Date: Service Type: Resolution: Reviewer: Comments: Last DP export: 02/17/20 5:38 p Patient Name: DAVE ROY Page [id number] at 1200 All edits/amendments must be made on the electronic document DICTATION DATE: 02/25/20 1200 SOUND TRUCK OPERATOR: SHIV 02/25/20 1200 RPT#: [id number] DC DATE: STATUS: ADM IN [facility] [address] [place] [address] END OF REPORT
--- NOTE | 2020-02-25 12:15 | MORECARE ---
CASE MANAGEMENT DISCHARGE SUMMARY PATIENT: DAVE ROY JR UNIT: [id number] ADM DATE: 02/15/20 AGE: 85 : 36 SEX: M ROOM/BED: D.2301 AUTHOR: WENDY KENNY PHYSICIAN: REFERRING PHYSICIAN: CHRISTOPHER UMANA MD DATE OF SERVICE: 02/25/20 Discharge Plan Patient Name: DAVE ROY Facility: [facility]:[place] : 1935 Planned Disposition: Nursing Facility [facility] Cert Anticipated Discharge Date: Discharge Date: Expected LOS: Initial Reviewer: [email or web address] Initial Review Date: 02/15/2020 Generated: 02/25/20 1:15 pm Comments DCP- Discharge Planning Updated by [email or web address]: Rona Ty on 02/25/20 11:[address] CM contacted patient's POA (dtr) Demi Fuentes @[phone] regarding [facility]. Provided names of hospice and she chooses [facility] [phone]. CM contacted Mirela with [facility], provided required information, including answers to Covid-19 questions. Faxed information to [phone]. DCP- Discharge Planning Updated by [id number]: Darcy Ayala on 02/17/20 5:[address] Patient Name: DAVE ROY Admission Status: ER Accout number: [id number] Admission Date: 02-15-2020 : 1935 Admission Diagnosis: Attending: CHRISTOPHER UMANA Current LOS: 2 Anticipated DC Date: Planned Disposition: Nursing Facility [facility] Cert Primary Insurance: MEDICARE A & B Discharge Planning Comments: CM met with patient at bedside after explaining CM role and obtaining verbal consent. Patient lives at home [facility] [phone] plans to return there upon discharge. AUTUMN completed Patient feels this would be a safe discharge. CM discussed availability / needs of home health and medical equipment. Patient denies any discharge needs at this time. CM will continue to follow and assist as needed with discharge planning / needs. Tagman: Darcy Ayala DCPIA - Discharge Planning Initial Assessment Updated by [email or web address]: Darcy Ayala on 02/17/20 6:29 pm * Is the patient Alert and Oriented? Yes * PCP KELSEY * Pharmacy [facility] * Preadmission Environment [facility] * [facility] * ADLs Independent * List name and contact numbers for known caregivers / representatives who currently or will assist patient after discharge: MAJOR WHITT - [phone] MARY JO PINTO - SISTER - [phone] ALEX Turcios BROTHER- [phone] JAGJIT ROY - [phone] * Verbal permission to speak to the caregivers and representatives has been obtained from the patient. Yes * Additional services required to return to the preadmission environment? No * Can the patient safely return to the preadmission environment? Yes * Has this patient been hospitalized within the prior 30 days at any hospital? No Last DP export: 02/25/20 11:00 am Patient Name: DAVE ROY Page 54350 at 1215 All edits/amendments must be made on the electronic document DICTATION DATE: 02/25/201214 ELEVATOR REPAIR MECHANIC: SHIV 02/25/20 121 RPT#: [id number] DC DATE: STATUS: ADM IN [facility] [address] [place] [address] END OF REPORT
--- NOTE | 2020-02-25 13:45 | NUR ---
AMADEO FROM [facility] HERE FOR EVAL AND ADMIT TO HOSPICE IF APPROPRIATE
--- NOTE | 2020-02-25 14:10 | NUR ---
POST EVAL FOR HOSPICE, PER AMADEO PATIENT WITH BE ACCEPTED WITH A GIP FOR RESPIRATORY DISTRESS, AWAITING POA TO SIGN LEGALS
[2020-02-25 15:00] VITALS: BP 111/59
--- NOTE | 2020-02-25 15:33 | NUR ---
AMADEO FROM [facility] HERE WITH LEGALS AND ADMISSION INFO
[2020-02-25 16:08] LABS: ACID FAST SMEAR Negative (()); AFB SPECIMEN PROCESSING Concentration (())
--- NOTE | 2020-02-25 16:24 | NUR ---
DISCHARGED TO [facility]
--- NOTE | 2020-02-25 16:26 | MORECARE ---
CASE MANAGEMENT DISCHARGE SUMMARY PATIENT: DAVE ROY JR UNIT: [id number] ADM DATE: 02/15/20 AGE: 85 : 36 SEX: M ROOM/BED: D.2301 AUTHOR: ZOYA,DOC PHYSICIAN: REFERRING PHYSICIAN: CHRISTOPHER UMANA MD DATE OF SERVICE: 02/25/20 Discharge Plan Patient Name: DAVE ROY Facility: [facility]:[place] : 1935 Planned Disposition: Nursing Facility [facility] Cert Anticipated Discharge Date: Discharge Date: Expected LOS: Initial Reviewer: [email or web address] Initial Review Date: 02/15/2020 Generated: 02/25/20 5:25 pm Comments DCP- Discharge Planning Updated by [email or web address]: Rona Ty on 02/25/20 3:[address] Patient has been accepted into [facility]. DCP- Discharge Planning Updated by [email or web address]: Rona Ty on 02/25/20 11:[address] CM contacted patient's POA (dtr) Demi Fuentes @[phone] regarding [facility]. Provided names of hospice and she chooses [facility] [phone]. CM contacted Mirela with [facility], provided required information, including answers to Covid-19 questions. Faxed information to [phone]. DCP- Discharge Planning Updated by [id number]: Darcy Ayala on 02/17/20 5:[address] Patient Name: DAVE ROY Admission Status: ER Accout number: [id number] Admission Date: 02-15-2020 : 1935 Admission Diagnosis: Attending: CHRISTOPHER UMANA Current LOS: 2 Anticipated DC Date: Planned Disposition: Nursing Facility [facility] Cert Primary Insurance: MEDICARE A & B Discharge Planning Comments: CM met with patient at bedside after explaining CM role and obtaining verbal consent. [phone] plans to return there upon discharge. AUTUMN completed Patient feels this would be a safe discharge. CM discussed availability / needs of home health and medical equipment. Patient denies any discharge needs at this time. CM will continue to follow and assist as needed with discharge planning / needs. Convenience Store Clerk: Darcy Ayala DCPIA - Discharge Planning Initial Assessment Updated by [email or web address]: Darcy Jamie on 02/17/20 6:29 pm * Is the patient Alert and Oriented? Yes * PCP [facility]ELSEY * Pharmacy [facility] * Preadmission Environment [facility] * Facility Name [facility] * ADLs Independent * List name and contact numbers for known caregivers / representatives who currently or will assist patient after discharge: MAJOR FUENTES -SEVENA - [phone] MARY JO PINTO - SISTER - [phone] ALEX Turcios BROTHER- [phone] JAGJIT ROY - [phone] * Verbal permission to speak to the caregivers and representatives has been obtained from the patient. Yes * Additional services required to return to the preadmission environment? No * Can the patient safely return to the preadmission environment? Yes * Has this patient been hospitalized within the prior 30 days at any hospital? No Coverage Notice Reviewer: [email or web address] Tam Ty Notice Issued Date-Time: 02/25/2020 12:43 Notice Type: Patient Choice Letter Notice Delivered To: Family Member Relationship to Patient: Daughter Interventional Radiology Technologist Name: Darcy GRIFFITH) Delivery Method: PHONE - Phone Мария Days: Prior Verbal Notification: Yes Recipient Understood Notice: Yes Recipient Signature: Med Rec Note Co-signed by Attending: Coverage Notice Comment: Paient Choice obtained by telephone from Darcy GRIFFITH) daughter. Last DP export: 02/25/20 11:15 am Patient Name: DAVE ROY Page [phone] at 1626 All edits/amendments must be made on the electronic document DICTATION DATE: 02/25/20 1625 MAIL EXAMINER: SHIV 02/25/20 1625 RPT#: [id number] DC DATE: STATUS: ADM IN [facility] [address] [place] [address] END OF REPORT
--- NOTE | 2020-02-26 09:12 | MORECARE ---
CASE MANAGEMENT DISCHARGE SUMMARY PATIENT: DAVE ROY JR UNIT: [id number] ADM DATE: 02/15/20 AGE: 85 : 37 SEX: M ROOM/BED: D.2301 AUTHOR: WENDY KENNY PHYSICIAN: REFERRING PHYSICIAN: CHRISTOPHER UMANA MD DATE OF SERVICE: 02/26/20 Discharge Plan Patient Name: DAVE ROY Facility: [facility]:[place] : 1935 Planned Disposition: Nursing Facility [facility] Cert Anticipated Discharge Date: Discharge Date: 02/25/2020 Expected LOS: Initial Reviewer: [email or web address] Initial Review Date: 02/15/2020 Generated: 02/26/20 10:12 am Comments DCP- Discharge Planning Updated by [email or web address]: Rona Ty on 02/25/20 3:[address] Patient has been accepted into [facility] with [facility]. DCP- Discharge Planning Updated by [email or web address]: Rona Ty on 02/25/20 11:[address] CM contacted patient's POA (dtr) Demi Fuentes @[phone] regarding [facility]. Provided names of hospice and she chooses [facility] [phone]. CM contacted Mirela with [facility], provided required information, including answers to Covid-19 questions. Faxed information to [phone]. DCP- Discharge Planning Updated by [email or web address]: Darcy Ayala on 02/17/20 5:[address] Patient Name: DAVE ROY Admission Status: ER Accout number: [id number] Admission Date: 02-15-2020 : 1935 Admission Diagnosis: Attending: CHRISTOPHER UMANA Current LOS: 2 Anticipated DC Date: Planned Disposition: Nursing Facility [facility] Cert Primary Insurance: MEDICARE A & B Discharge Planning Comments: CM met with patient at bedside after explaining CM role and obtaining verbal consent. Patient lives at home [facility] [phone] plans to return there upon discharge. AUTUMN completed Patient feels this would be a safe discharge. CM discussed availability / needs of home health and medical equipment. Patient denies any discharge needs at this time. CM will continue to follow and assist as needed with discharge planning / needs. Crab Picker: Darcy Ayala DCPIA - Discharge Planning Initial Assessment Updated by [email or web address]: Darcyguanaco Ayala on 02/17/20 6:29 pm * Is the patient Alert and Oriented? Yes * PCP KELSEY * Pharmacy [facility] * Preadmission Environment [place] Inspector Alf * Facility Name [facility] * ADLs Independent * List name and contact numbers for known caregivers / representatives who currently or will assist patient after discharge: MAJOR FUENTES -POA - [phone] MARY JO PINTO - SISTER - [phone] ALEX Turcios BROTHER- [phone] JAGJIT ROY - [phone] * Verbal permission to speak to the caregivers and representatives has been obtained from the patient. Yes * Additional services required to return to the preadmission environment? No * Can the patient safely return to the preadmission environment? Yes * Has this patient been hospitalized within the prior 30 days at any hospital? No Coverage Notice Reviewer: [id number] Tam Ty Notice Issued Date-Time: 02/25/2020 12:43 Notice Type: Patient Choice Letter Notice Delivered To: Family Member Relationship to Patient: Daughter [employer] Model Name: Darcy GRIFFITH) Delivery Method: PHONE - Phone Мария Days: Prior Verbal Notification: Yes Recipient Understood Notice: Yes Recipient Signature: Med Rec Note Co-signed by Attending: Coverage Notice Comment: Paient Choice obtained by telephone from Darcy GRIFFITH) daughter. 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
[2020-02-26 15:10] LABS: FUNGUS STAIN Final report (())
[2020-02-29 14:08] LABS: AMPHOTERICIN B MIC 1.0 ug/mL (())
== END 2020-02-25 16:43 | disposition hospice, inpatient (51) | DRG 853 ==
LOC: D.ER 08:34 → D.ICU 09:46 → D.CVICU 09:46 → D.ICU 02-19 14:41
PROVIDERS: Emergency Medicine; Internal Medicine Nephrology; Internal Medicine Pulmonary Disease; Radiology Diagnostic Radiology; Surgery; ADMIT Internal Medicine Nephrology; ATTEND Internal Medicine Nephrology
PROC: 05H633Z Insertion of Infusion Device into Left Subclavian Vein, Percutaneous Approach (ICD-10-PCS; principal; 2020-02-16)
PROC: 0D9W3ZZ Drainage of Peritoneum, Percutaneous Approach (ICD-10-PCS; 2020-02-17)
PROC: 0DJ08ZZ Inspection of Upper Intestinal Tract, Via Natural or Artificial Opening Endoscopic (ICD-10-PCS; 2020-02-19)
PROC: 0DU947Z Supplement Duodenum with Autologous Tissue Substitute, Percutaneous Endoscopic Approach (ICD-10-PCS; 2020-02-19 11:30)
PROC: 0FT44ZZ Resection of Gallbladder, Percutaneous Endoscopic Approach (ICD-10-PCS; 2020-02-19 11:30)
DX: A41.9 Sepsis, unspecified organism (principal); K26.2 Acute duodenal ulcer with both hemorrhage and perforation; R57.1 Hypovolemic shock; G93.41 Metabolic encephalopathy; N17.0 Acute kidney failure with tubular necrosis; R65.21 Severe sepsis with septic shock; J95.821 Acute postprocedural respiratory failure; J69.0 Pneumonitis due to inhalation of food and vomit; E44.0 Moderate protein-calorie malnutrition; E87.0 Hyperosmolality and hypernatremia; J98.11 Atelectasis; D62 Acute posthemorrhagic anemia; Z68.20 Body mass index [BMI] 20.0-20.9, adult; F03.90 Unspecified dementia, unspecified severity, without behavioral disturbance, psychotic disturbance, mood disturbance, and anxiety; D64.9 Anemia, unspecified; E11.22 Type 2 diabetes mellitus with diabetic chronic kidney disease; I12.9 Hypertensive chronic kidney disease with stage 1 through stage 4 chronic kidney disease, or unspecified chronic kidney disease; N18.9 Chronic kidney disease, unspecified; E87.6 Hypokalemia; Y83.9 Surgical procedure, unspecified as the cause of abnormal reaction of the patient, or of later complication, without mention of misadventure at the time of the procedure; D50.9 Iron deficiency anemia, unspecified; Z66 Do not resuscitate

== ENCOUNTER 2020-02-25 15:44 | Inpatient (IN) | payer OTHER ==
[2020-02-17 10:20] VITALS: BMI 23.3
[~2020-02-25 15:44] MED LIST changes: +CENTRUM MEN'S1 EACH PO; +DONEPEZIL HCL5 MG PO; +FERROUS SULFAT325 MG PO; +FOLIC ACID1 MG PO; +GLIPIZIDE10 MG PO; +LEVEMIR IN100 UNITS/ SC; +LIPITOR20 MG PO; +REMERON15 MG PO; +SEROQUEL25 MG PO; +SINGULAIR10 MG PO
--- NOTE | 2020-02-25 18:45 | NUR ---
PT ARRIVED TO FLOOR VIA BED. X4 TO TRANSFER FROM BED FROM ICU TO BED IN ROOM. PT SOLOMNENT ACCEPTABLE. YANKAUER SUCTION AT BEDSIDE. O2 AT 2L VIA NC. ROBERTSON DRAINIGN BY GRAVITY. LEFT SUBCLAVIAN CVL INFUSING NS AT 30ML/HR AND MORPHINE SPLICING SUPERVISOR. BED LOW. CL IN REACH.
--- NOTE | 2020-02-25 19:11 | NUR ---
PT IS RESTING WITH EYES CLOSED AND NOT RESPONDING TO ANY STIMULI BED LOW AND LOCKED CALL LIGHT IS BESIDE PT IV PATENT AND HAS PROGRAMED MSO4 TEAM FOREMAN PT IS HOSPICE AND NOTED DNR I WILL PROVIDE COMFORT CARE PT IS DRY WITH CLEAN LINEN
--- NOTE | 2020-02-25 20:02 | NUR ---
NO CHANGES IN PT STATUS AT THIS TIME
--- NOTE | 2020-02-25 20:51 | NUR ---
SX PT AT THIS TIME USING YONKERS WITH LITTLE RESULTS
[2020-02-25 21:44] VITALS: BP 84/47
--- NOTE | 2020-02-25 21:49 | NUR ---
PT CONTINUES WITH NO CHANGES IN STATUS LINENS ARE DRY NO PRECEPTABLE INDICATORS OF PAIN
--- NOTE | 2020-02-25 23:29 | NUR ---
CHECKED ON PT AND NO RESP NO PULSE PT IS DNR AND ON HOSPICE NOTIFIED CHARGE NURSE AT THIS TIME
--- NOTE | 2020-02-25 23:36 | NUR ---
.CALL PLACED AND RETURNED FROM [facility] THEY INFORMED ME A nURSE IS ON HER WAY ALL [place]ANT[place] AND IN LINES HAVE BEEN TURNED OFF
--- NOTE | 2020-02-26 01:10 | NUR ---
HOSPICE NURSE IS HERE NOW AND HAS PRONOUNCED PT
--- NOTE | 2020-02-26 01:13 | NUR ---
FAMILY AND HOME HAVE BEEN NOTIFIED BY HOSPICE NURSE I HAVE INITIOALLY NOTIFIED PRECIOUS AND I AM AWAITING CALL BACK
--- NOTE | 2020-02-26 02:42 | NUR ---
BODY RELEASED TO HOME
== END 2020-02-26 02:43 | DRG 951 ==
LOC: D.ICU 15:44 → D.M2 18:38
PROVIDERS: ADMIT Legal Medicine; ATTEND Legal Medicine
DX: Z51.5 Encounter for palliative care (principal)